=== PATIENT | female | born 1940 | race Caucasian/White ===

== ENCOUNTER 2018-07-04 18:54 | Emergency (ER) | payer MEDICARE, OTHER ==
[~2018-07-04] VITALS: Ht 167.6 cm; Wt 90.7 kg
[~2018-07-04 18:54] MED LIST: ALLO100 PO; CARV25 PO; CHOL10002 PO; CYAN1000 PO; ESTR2 PO; FISH1000 PO; HYDCHL25 PO; LISI20 PO; METF500 PO; NEPHROCAP PO; PARI1 PO; PRAV20 PO
[2018-07-04 19:32] LABS: BASOPHILS ABSOLUTE AUTO 0.02 K/mm3 (0.00-0.23); BASOPHILS PERCENT AUTO 1 % (0-2); EOSINOPHILS ABSOLUTE AUTO 0.12 K/mm3 (0.00-0.68); EOSINOPHILS PERCENT AUTO 3 % (0-6); Hematocrit 31.8 % (33.0-51.0); Hemoglobin 9.6 g/dL (11.5-16.0); IMMATURE GRAN ABSOLUTE AUTO 0.01 K/mm3 (0.00-0.10); IMMATURE GRAN PERCENT AUTO 0 % (0-1); LYMPHOCYTES ABSOLUTE AUTO 1.54 K/mm3 (0.84-5.20); LYMPHOCYTES PERCENT AUTO 35 % (21-46); MONOCYTES ABSOLUTE AUTO 0.35 K/mm3 (0.16-1.47); MONOCYTES PERCENT AUTO 8 % (4-13); Mean Corpuscular HGB 29.1 pg (26.0-34.0); Mean Corpuscular HGB Conc 30.2 g/dL (31.5-36.5); Mean Corpuscular Volume 96 fL (80-100); Mean Platelet Volume 9.8 fL (9.1-12.4); NEUTROPHILS ABSOLUTE AUTO 2.35 K/mm3 (1.96-9.15); NEUTROPHILS PERCENT AUTO 54 % (41-73); Platelet Count 104 K/mm3 (150-400); RDW Coefficient Variation 14.8 % (11.7-14.2); RDW Standard Deviation 52.2 fL (35.1-46.3); White Blood Cell Count 4.39 K/mm3 (4.00-11.30)
[2018-07-04] MEDS ORDERED: [UNRECOGNIZED DRUG - OTHER] PO (19:40)
[2018-07-04 20:00] LABS: Alanine Aminotransfer (ALT/SGP 38 U/L (12-78); Albumin, Blood 3.5 g/dL (3.4-5.0); Albumin/Globulin Ratio 0.8 (0.8-1.8); Alk Phos 109 U/L (50-136); Anion Gap 9 mmol/L (6-16); Aspartate Aminotrans (AST/SGOT 53 U/L (12-37); Bilirubin, Total 0.3 mg/dL (0.1-1.0); Blood Urea Nitrogen 21 mg/dL (8-24); Bun/Creatinine Ratio 14.4 (12.0-20.0); CO2, Blood 24 mmol/L (21-32); Calcium, Blood 10.1 mg/dL (8.5-10.1); Chloride, Blood 108 mmol/L (98-108); Creatinine, Blood 1.46 mg/dL (0.40-1.00); Globulin, Blood 4.4 g/dL (2.2-4.0); Glomerular Filtration Rate 37 (60-); Glucose, Blood 203 mg/dL (70-99); Potassium, Blood 3.9 mmol/L (3.5-5.5); Sodium, Blood 141 mmol/L (136-145); Total Protein, Blood 7.9 g/dL (6.4-8.2); Troponin I <0.015 ng/mL (0.000-0.040)
== END 2018-07-04 20:47 | disposition home or self-care (01) ==
LOC: ER 18:54
PROVIDERS: Emergency Medicine
DX: I48.91 Unspecified atrial fibrillation (principal); Z88.8 Allergy status to other drugs, medicaments and biological substances; Z79.899 Other long term (current) drug therapy; I10 Essential (primary) hypertension; E11.9 Type 2 diabetes mellitus without complications
CPT/HCPCS: 36415; 71046; 80053; 83735; 84484; 85025; 93005; 93010; 99285-25

== ENCOUNTER 2018-09-29 07:55 | Day surgery (SDC) | payer MEDICARE, OTHER ==
[~2018-09-29] VITALS: Ht 167.6 cm; Wt 92.9 kg
[~2018-09-29 07:55] MED LIST changes: +FENO54 PO; +Lopressor 25 mg25 MG PO; +Pravachol40 MG PO; +Zestril30 MG PO; +[UNRECOGNIZED DRUG - OTHER] PO
--- NOTE | 2018-09-29 08:41 | NUR ---
Ambulatory in Day SurgeryPatient states colon prep results clear. History, Chart, Medications and Allergies reviewed before start of procedure.Lungs clear T/O to Auscultation. Patient confirms NPO status and agrees with scheduled surgery. Pre-Op teaching done. Pt verbalizes understanding. WT ON ARRIVAL, WARM BLANKET, TO BP MEDS THIS AM
--- NOTE | 2018-09-29 09:17 | NUR ---
09/29/18 0917 Jaquan Garcia PATIENT DETERMINED TO BE ASA APPROPRIATE FOR PROPOFOL SEDATION PRIOR TO START OF PROCEDURE BY DR. Juan Wall Placed3-LEAD EKG REVIEWED WITH PHYSICIAN PRIOR TO START OF PROCEDURE.Patient to ENDO 1History, Chart, Medications and Allergies reviewed before start of procedure.MONITOR INTACT WITH CONTINUOUS PULSE OXIMETRY AND INTERMITTENT BP.O2 VIA N/C INTACT THROUGHOUT SEDATION/PROCEDURE.
--- NOTE | 2018-09-29 11:22 | NUR ---
PT MORE AWAKE, SITTING UP DRINKING PEPSI, RIDE WILL RETURN SHORTLY.
--- NOTE | 2018-09-29 11:32 | NUR ---
Discharge instructions reviewed with patient. Patient verbalizes understanding. Copy given to patient to take home. Discharged via wheelchair to private car for ride home.
== END 2018-09-29 23:16 | disposition home or self-care (01) ==
LOC: ORSCMMR 07:55 → ORD 09:00 → ORSCMMR 23:16
PROVIDERS: Internal Medicine Gastroenterology
PROC: 0DB98ZX Excision of Duodenum, Via Natural or Artificial Opening Endoscopic, Diagnostic (ICD-10-PCS; principal; 2018-09-29 09:00)
PROC: 0DBL8ZX Excision of Transverse Colon, Via Natural or Artificial Opening Endoscopic, Diagnostic (ICD-10-PCS; principal; 2018-09-29 09:00)
PROC: 0DB68ZX Excision of Stomach, Via Natural or Artificial Opening Endoscopic, Diagnostic (ICD-10-PCS; principal; 2018-09-29 09:00)
PROC: 0DBK8ZX Excision of Ascending Colon, Via Natural or Artificial Opening Endoscopic, Diagnostic (ICD-10-PCS; principal; 2018-09-29 09:00)
PROC: 3E0H8GC Introduction of Other Therapeutic Substance into Lower GI, Via Natural or Artificial Opening Endoscopic (ICD-10-PCS; principal; 2018-09-29 09:00)
DX: D50.0 Iron deficiency anemia secondary to blood loss (chronic) (principal); C18.4 Malignant neoplasm of transverse colon; D12.2 Benign neoplasm of ascending colon; D12.3 Benign neoplasm of transverse colon; K63.5 Polyp of colon; K29.70 Gastritis, unspecified, without bleeding; K57.30 Diverticulosis of large intestine without perforation or abscess without bleeding; K64.8 Other hemorrhoids; E11.9 Type 2 diabetes mellitus without complications; I10 Essential (primary) hypertension; I48.91 Unspecified atrial fibrillation; E78.00 Pure hypercholesterolemia, unspecified; Z79.899 Other long term (current) drug therapy; E66.01 Morbid (severe) obesity due to excess calories
CPT/HCPCS: 82947; 88305; 88342; J2704; J7120

== ENCOUNTER 2018-11-11 06:09 | Inpatient (IN) | payer MEDICARE, OTHER ==
[~2018-11-11] VITALS: Ht 167.6 cm; Wt 97.8 kg
[~2018-11-11 06:09] MED LIST changes: +CYAN500 SL; +FISH OIL PO; +NIAC500 PO; +OMEPRAZOLE20 MG PO; +TYLENOL ARTHRITIS PO
--- NOTE | 2018-11-11 07:20 | NUR ---
History, Chart, Medications and Allergies reviewed before start of procedure. Patient confirms NPO status and agrees with scheduled surgery. Lungs clear T/O to Auscultation. Patient reports completing Chlorhexadine shower X2 prior to admission to hospital. Pre-Op teaching done. Pt verbalizes understanding. TYPE AND SCREEN DISCUSSED WITH DR ANN, ORDER PLACED AND LAB SPECIMEN SENT.
--- NOTE | 2018-11-11 07:20 | NUR ---
MULTI SHARE PROGRAM COORDINATOR REPORT COMPLETED AT BEDSIDE WITH MICHELLE WALTON RN.
--- NOTE | 2018-11-11 07:22 | NUR ---
OR TRACKER EXPLAINED AND OPPORTUNITY FOR QUESTIONS PROVIDED.
--- NOTE | 2018-11-11 14:00 | NUR ---
PATIENT ARRIVED TO UNIT WITH BIPAP. REPORT RECEIVED FROM JAZLYN JAMES PACU. NO ACUTE ISSUES NOTED PATIENT RESPONDES TO VERBAL STIMULI BUT IS VERY SLEEPY. NO COMPLAINTS OF PAIN OR DISCOMFORT AT THIS TIME. WILL CONTINUE TO MONITOR FOR CHANGES.
--- NOTE | 2018-11-11 18:40 | NUR ---
NO ACUTE CHANGES NOTED. PATIENT IS WEANING OFF BIPAP, CURRENTLY ON 1 LITER 02 VIA NASAL CANULA AND SATING @ 100%. NO CURRENT COMPLAINTS OF PAIN OR DISCOMFORT NOTED. PATIENT STATES SHE IS CURRENTLY PAIN FREE AND DOES NOT WANT THE TELEVISION TUBE INSPECTOR AT THIS TIME. SURGICAL SITE IS CLEAN DRY AND INTACT WITH A PRAVENA VAC OVER IT. NO OTHER ISSUES NOTED. WILL CONTINUE TO MONITOR FOR CHANGES.
[2018-11-12 04:11] LABS: BASOPHILS ABSOLUTE AUTO 0.01 K/mm3 (0.00-0.23); BASOPHILS PERCENT AUTO 0 % (0-2); EOSINOPHILS PERCENT AUTO 0 % (0-6); Hematocrit 25.5 % (33.0-51.0); Hemoglobin 7.3 g/dL (11.5-16.0); IMMATURE GRAN ABSOLUTE AUTO 0.04 K/mm3 (0.00-0.10); IMMATURE GRAN PERCENT AUTO 1 % (0-1); LYMPHOCYTES ABSOLUTE AUTO 0.88 K/mm3 (0.84-5.20); LYMPHOCYTES PERCENT AUTO 14 % (21-46); MONOCYTES ABSOLUTE AUTO 0.48 K/mm3 (0.16-1.47); MONOCYTES PERCENT AUTO 8 % (4-13); Mean Corpuscular HGB 26.8 pg (26.0-34.0); Mean Corpuscular HGB Conc 28.6 g/dL (31.5-36.5); Mean Corpuscular Volume 94 fL (80-100); Mean Platelet Volume 9.3 fL (9.1-12.4); NEUTROPHILS ABSOLUTE AUTO 4.74 K/mm3 (1.96-9.15); NEUTROPHILS PERCENT AUTO 77 % (41-73); Platelet Count 82 K/mm3 (150-400); RDW Coefficient Variation 15.9 % (11.7-14.2); RDW Standard Deviation 54.4 fL (35.1-46.3); Red Blood Cell Count 2.72 M/mm3 (3.80-5.20); White Blood Cell Count 6.15 K/mm3 (4.00-11.30)
[2018-11-12 04:43] LABS: Bun/Creatinine Ratio 14.5 (12.0-20.0); Calcium, Blood 9.5 mg/dL (8.5-10.1); Creatinine, Blood 1.17 mg/dL (0.40-1.00); Potassium, Blood 4.1 mmol/L (3.5-5.5)
--- NOTE | 2018-11-12 05:01 | NUR ---
PCU NOC SHIFT SUMMARY PATIENT ALERT AND ORIENTED T/O SHIFT X4. PATIENT SLEPT WELL T/O SHIFT. PATIENT REPORTS MINIMAL TO NO PAIN. PATIENT STOOD WITH 2 ASSIST THIS THIS AND TOLERATED WELL. SUGRGICAL SITE AND WOUND VAC WNL WITH MINIMAL DRAINAGE INTO WOUND VAC CONTANER. PATIENT REMAINS ON ROOM AIR T/O SHIFT USING BIPAP PRN. 1+ EDEMA IN BLE NOTED. PATIENT DENIES ANY NEEDS AT THIS TIME. CALL LIGHT W/I REACH. WILL CONTINUE TO MONITOR AND GIVE REPORT TO DAYSHIFT RN.
--- NOTE | 2018-11-12 11:30 | NUR ---
PT LAYING IN BED EATING A CLEAR LIQUID DIET. A/OX3, PLEASANT AND COOPERATIVE WITH CARE, DENIES PAIN, LUNGS ARE CLEAR DIM IN BASES, RESP EVEN AND UNLABORED, NO COUGH NOTED, HRR, TELE IN PLACE RUNNING SR TO ST PER MONITOR, SEE STRIP, NO EDEMA NOTED, PPP+2, CAP REFILL <3SEC, VS STABLE, AFEBRILE, IV SITE IS CLEAR AND PATENT, BTX4, ABD FLAT SOFT NONTENER, VOIDS WITH OUT DIFF, SKIN HAS MID LINE ABD INCISION WITH A WOUND VAC IN PLACE, NO OUT SIDE DRAINAGE, OR S/S/ OF INFECTION, JANNETTE ARREAGA, CALL LIGHT IN REACH.
--- NOTE | 2018-11-12 16:43 | NUR ---
PT HAS BEEN TRANSFERED TO SURGICAL FLOOR, HER FAMILY IS WITH HER, AND TOOK HER BELONGINGS OVER WITH HER, REPORT GIVE TO ANA JAMES. PT TRANSFERED VIA WHEELCHAIR WITH TILE INSTALLER IN ATTENDENCE.
--- NOTE | 2018-11-12 17:07 | NUR ---
PT RECENTLY ARRIVED TO SURGICAL UNIT ROOM 228. REPORT GIVEN TO ANA Coates RN. FAMILY PRESENT. DENIES CP/SOB, DENIES PAIN. REPORTS TOLERATING CLEAR LIQUIDS. PT HAD LIQUID BM UPON ARRIVAL TO FLOOR. CLEANED UP WITH ASSIST BY FEMALE GLASS MELT OPERATOR'S. LUCERO IN PLACE, SECURED, OFF FLOOR. CALL LIGHT IN REACH. PT ASSISTED WITH ADL'S. DENIES FURTHER NEEDS AT THIS TIME. PRAVENA TO ABDOMEN APPEARS WNL. PAS IN PLACE.
--- NOTE | 2018-11-13 07:53 | NUR ---
SUMMARY PT SLEPT OFF AND ON TONIGHT APPEARING COMFORTABLE WITH SLEEP.ON ASSESS NOTED PT WITH EDEMA ALL EXT. ALSO WITH CRACKLES BILAT BASES.ONLY SMALL AMNTS DARKER URINE IN LUCERO NOTED. P T USUALLY TAKES LISINOPRIL AND IT WAS ORDERED, BUT NOT TO START TIL NEXT AM. I CALLED DR TO ADVISE OF ABOVE IN ADDITION TO NOTING ONGOING HTN. HE ORDERED TO GIVE DOSE OF LISINOPRIL TONIGHT IN ADDITION TO NEXT DOSE IN AM. NIC DCD THIS AM.PER ORDERS AFTER NOTING IMPROVED OUTPUT.
--- NOTE | 2018-11-13 10:38 | NUR ---
PT VOIDED THIS AM AFTER LUCERO REMOVAL. PT ALSO HAVING LIQUID STOOL, AMBULATED IN HALLWAY W/ ASSIST. PT DROWSY W/ SLIGHT CONFUSION. PT DAUGHTER CALLED UPDATED ON CONDITION. RECHECKED BP MILD IMPROVEMENT. DAUGHTER ALSO BY TO SEE PT.
--- NOTE | 2018-11-13 15:27 | NUR ---
ASSUMED CARE OF PT FROM ERIKA PATRICIO.
--- NOTE | 2018-11-13 17:33 | NUR ---
PT BP WAS ELEVATED THIS AM, HYDRALAZINE ORDERED AND GIVEN PER EMAR. BP DECREASED SLIGHTLY. PT AMBULATED IN BLACKMON EARLIER BUT HAS BEEN SLEEPING ON AND OFF THROUGHOUT THE DAY. DAUGHTER STATES SLIGHT CONFUSION IS HER BASELINE. ATTEMPTS TO GET OOB INDEPENDENTLY TO BATHROOM, BED ALARM ON AT THIS TIME. FAMILY AT BEDSIDE, PT PLEASANT AND COOPERATIVE.
[2018-11-14 04:35] LABS: Bun/Creatinine Ratio 15.1 (12.0-20.0); Calcium, Blood 9.9 mg/dL (8.5-10.1); Creatinine, Blood 1.06 mg/dL (0.40-1.00); Potassium, Blood 3.5 mmol/L (3.5-5.5)
--- NOTE | 2018-11-14 06:01 | NUR ---
POD 2 S/P LAVH. PT VSS T/O NIGHT. DRESSINGS CDI. SCANT VAGINAL BLEEDING. PAIN MGD W/1 OXYCODONE+IBUPROFEN W/REP RELIEF. PT AIME REG PO, DENIED N/V. PT IS VOIDING URINE W/O DIFFICULTY, REP +FLATUS, NO BM YET, BOWEL CARE GIVEN PER ORDERS. PT INDEP IN ROOM, IS USING CALL LIGHT FOR ASSISTANCE, WILL CONT TO MONITOR UNTIL REP GIVEN TO ONCOMING RN.
--- NOTE | 2018-11-14 07:02 | NUR ---
SUMMARY PT WITH NO C/O TONIGHT. OCC FORGETFUL DURING NIGHT HOURS. TOLERATES OOB WITH FWW WITH SBA.NO C/O NAUSEA.
--- NOTE | 2018-11-14 11:43 | NUR ---
DR ANN IN TO SEE PT
--- NOTE | 2018-11-14 17:00 | NUR ---
SUMMARY NO ACUTE CHANGES T/O SHIFT. PT SAT UP IN CHAIR FOR SEVERAL HOURS DURING SHIFT. HAD LARGE INCONTINENT BM. SHOWERED. HAS DENIED PAIN. TOLERATING PO INTAKE. FORGETFUL AT TIMES. UTILIZING TAB AND BED ALARMS FOR SAFETY.
--- NOTE | 2018-11-14 17:30 | NUR ---
turned over care to ERIKA Linton
--- NOTE | 2018-11-15 06:39 | NUR ---
SUMMARY PT INTERMITTENTLY CONFUSED TONIGHT. DESIRES TO GO HOME TODAY. ASSIST FOR OOB FOR BRP WITH WALKER AND ASSIST.TRANSFERRED TO RM 231 RM 228 WAS NEEDED FOR NEW PT.
--- NOTE | 2018-11-15 14:13 | NUR ---
DISCHARGE SUMMARY PT DISCHARGED HOME AT 1400 WITH DAUGHTERS. DISCHARGE TEACHING GIVEN AND PATIENT/DAUGHTERS DENIED ANY CONCERNS OR QUESTIONS. PROVENA DRESSING C/D/I. PATIENT DENIES SOB OR PAIN. AMBULATES WITH FWW AND ONE ASSIST. IS EATING, DRINKING, AND VOIDING.
== END 2018-11-15 14:04 | disposition home or self-care (01) | DRG 331 ==
LOC: SURS 06:09 → PRE IP 07:30 → PCU 11:59 → SURS 11-12 16:39
PROVIDERS: ADMIT Surgery
PROC: 0DTF0ZZ Resection of Right Large Intestine, Open Approach (ICD-10-PCS; principal; 2018-11-12)
DX: C18.4 Malignant neoplasm of transverse colon (principal); E78.5 Hyperlipidemia, unspecified; E11.9 Type 2 diabetes mellitus without complications; I48.0 Paroxysmal atrial fibrillation; I35.0 Nonrheumatic aortic (valve) stenosis; L71.9 Rosacea, unspecified; D50.0 Iron deficiency anemia secondary to blood loss (chronic); D69.6 Thrombocytopenia, unspecified; D12.6 Benign neoplasm of colon, unspecified
CPT/HCPCS: 36415; 80048; 82947; 85025; 86850; 86900; 86901; 94660; 94762; J0295; J0360; J1650; J1885; J2250; J2370; J2405; J2704; J2710; J3010; J7120

== ENCOUNTER 2019-01-31 10:34 | Emergency (ER) | payer MEDICARE, OTHER ==
[~2019-01-31] VITALS: Ht 167.6 cm; Wt 90.7 kg
[2019-01-31] MEDS ORDERED: IRON150C PO (13:14)
[2019-01-31 13:20] LABS: Percent Saturation 5.7 % (15.0-50.0)
== END 2019-01-31 13:23 | disposition home or self-care (01) ==
LOC: ER 10:34
PROVIDERS: Internal Medicine
DX: D50.9 Iron deficiency anemia, unspecified (principal); I10 Essential (primary) hypertension; E11.9 Type 2 diabetes mellitus without complications; E78.5 Hyperlipidemia, unspecified; M10.9 Gout, unspecified; I48.0 Paroxysmal atrial fibrillation; Z85.51 Personal history of malignant neoplasm of bladder; Z88.8 Allergy status to other drugs, medicaments and biological substances; Z79.84 Long term (current) use of oral hypoglycemic drugs; Z79.899 Other long term (current) drug therapy
CPT/HCPCS: 82272; 82607; 82728; 82746; 83540; 83550; 99283

== ENCOUNTER 2019-03-19 13:50 | Inpatient (IN) | payer MEDICARE, OTHER ==
[~2019-03-19] VITALS: Ht 167.6 cm; Wt 93.7 kg
[~2019-03-19 13:50] MED LIST changes: +IRON150C PO
[2019-03-19 15:22] LABS: Source, Urine Clean Catch
[2019-03-19 15:37] LABS: Bilirubin, Urine Neg (Neg); Blood, Urine 2+ (Neg); Glucose Qualitative, Urine Neg (Neg); Ketones, Urine Neg (Neg); Leukocyte Esterase, Urine 2+ (Neg); Nitrite, Urine Pos (Neg); Protein, Urine 3+ (Neg); Urobilinogen, Urine NORM (Normal)
[2019-03-19] MEDS ORDERED: Ferrex 150 Plu1 EACH PO (15:50)
[2019-03-19] MEDS ORDERED: Zestril40 MG PO (15:50)
[2019-03-19 15:51] LABS: Appearance, Urine Hazy (Clear); Color, Urine Yellow (P-Yellow)
[2019-03-19] MEDS ORDERED: METO50ER PO (15:51)
[2019-03-19 15:53] LABS: Bacteria Many /hpf; Squamous Epithelial Cells Mod /hpf (Few); White Blood Cells, Urine 25-50 /hpf (0-5)
[2019-03-19 15:58] LABS: BASOPHILS ABSOLUTE AUTO 0.01 K/mm3 (0.00-0.23); BASOPHILS PERCENT AUTO 0 % (0-2); EOSINOPHILS ABSOLUTE AUTO 0.02 K/mm3 (0.00-0.68); EOSINOPHILS PERCENT AUTO 0 % (0-6); Hematocrit 29.8 % (33.0-51.0); Hemoglobin 8.7 g/dL (11.5-16.0); IMMATURE GRAN ABSOLUTE AUTO 0.02 K/mm3 (0.00-0.10); IMMATURE GRAN PERCENT AUTO 0 % (0-1); LYMPHOCYTES ABSOLUTE AUTO 0.41 K/mm3 (0.84-5.20); LYMPHOCYTES PERCENT AUTO 6 % (21-46); MONOCYTES ABSOLUTE AUTO 0.46 K/mm3 (0.16-1.47); MONOCYTES PERCENT AUTO 7 % (4-13); Mean Corpuscular HGB 28.8 pg (26.0-34.0); Mean Corpuscular HGB Conc 29.2 g/dL (31.5-36.5); Mean Corpuscular Volume 99 fL (80-100); Mean Platelet Volume 10.2 fL (9.1-12.4); NEUTROPHILS ABSOLUTE AUTO 5.66 K/mm3 (1.96-9.15); NEUTROPHILS PERCENT AUTO 86 % (41-73); Platelet Count 69 K/mm3 (150-400); RDW Coefficient Variation 16.2 % (11.7-14.2); RDW Standard Deviation 58.9 fL (35.1-46.3); Red Blood Cell Count 3.02 M/mm3 (3.80-5.20); White Blood Cell Count 6.58 K/mm3 (4.00-11.30)
[2019-03-19 16:12] LABS: Albumin/Globulin Ratio 0.8 (0.8-1.8); Bilirubin, Total 0.5 mg/dL (0.1-1.0); Bun/Creatinine Ratio 14.7 (12.0-20.0); Calcium, Blood 9.9 mg/dL (8.5-10.1); Creatinine, Blood 1.09 mg/dL (0.40-1.00); Globulin, Blood 3.9 g/dL (2.2-4.0); Potassium, Blood 3.7 mmol/L (3.5-5.5); Total Protein, Blood 6.9 g/dL (6.4-8.2)
[2019-03-19 18:12] LABS: International Normalized Ratio 1.03; Prothrombin Time Results 10.9 Sec (9.7-11.5)
[2019-03-20 04:06] LABS: BASOPHILS ABSOLUTE AUTO 0.01 K/mm3 (0.00-0.23); BASOPHILS PERCENT AUTO 0 % (0-2); Hematocrit 27.7 % (33.0-51.0); Hemoglobin 8.2 g/dL (11.5-16.0); LYMPHOCYTES ABSOLUTE AUTO 0.62 K/mm3 (0.84-5.20); LYMPHOCYTES PERCENT AUTO 6 % (21-46); MONOCYTES ABSOLUTE AUTO 0.58 K/mm3 (0.16-1.47); MONOCYTES PERCENT AUTO 6 % (4-13); Mean Corpuscular HGB 29.2 pg (26.0-34.0); Mean Corpuscular HGB Conc 29.6 g/dL (31.5-36.5); Mean Corpuscular Volume 99 fL (80-100); Mean Platelet Volume 9.6 fL (9.1-12.4); Platelet Count 69 K/mm3 (150-400); RDW Coefficient Variation 16.4 % (11.7-14.2); RDW Standard Deviation 59.4 fL (35.1-46.3); Red Blood Cell Count 2.81 M/mm3 (3.80-5.20); White Blood Cell Count 9.89 K/mm3 (4.00-11.30)
[2019-03-20 04:10] LABS: EOSINOPHILS PERCENT AUTO 0 % (0-6); IMMATURE GRAN PERCENT AUTO 1 % (0-1); NEUTROPHILS ABSOLUTE AUTO 8.58 K/mm3 (1.96-9.15); NEUTROPHILS PERCENT AUTO 87 % (41-73)
[2019-03-20 04:22] LABS: Albumin, Blood 2.7 g/dL (3.4-5.0); Albumin/Globulin Ratio 0.7 (0.8-1.8); Bilirubin, Total 0.7 mg/dL (0.1-1.0); Bun/Creatinine Ratio 14.2 (12.0-20.0); Calcium, Blood 9.3 mg/dL (8.5-10.1); Creatinine, Blood 1.34 mg/dL (0.40-1.00); Globulin, Blood 3.7 g/dL (2.2-4.0); Potassium, Blood 4.3 mmol/L (3.5-5.5); Total Protein, Blood 6.4 g/dL (6.4-8.2)
--- NOTE | 2019-03-20 05:38 | NUR ---
SHIFT SUMMARY PT SLEEPING IN ROOM COMFORTABLY AT THIS TIME. NO ACUTE CHANGES IN STATUS SINCE PT ARRIVAL. PT SLEPT VERY WELL T/O NIGHT. PT REPORTS FEELING BETTER AND WANTS TO GO HOME TODAY. PT EDUCATED THAT ABX WILL LIKELY BE GIVEN TODAY AND THAT PROVIDERS WILL NEED TO MONITOR EFFECT. PT REPORTS UNDERSTANDING THAT SHE MAY STAY ONE MORE MIDNIGHT. RESP EVEN UNLABORED ON RA W/ SATS >92%. DENIES ANY PAIN OR SOB. PT ABLE TO STAND W/ SBA TO BSC TO URINATE. PT HAS 2 PIV THAT ARE SALINE LOCKED AT THIS TIME. DENIES OTHER NEEDS. CALL LIGHT IN REACH. BED ALARM ON FOR SAFETY, D/T CONFUSION.
--- NOTE | 2019-03-20 14:34 | NUR ---
PT UP WITH PHYSICAL THERAPY AND MORE REDNESS/EDEMA NOTED TO L ANKLE THAN SEEN THIS MORNING. ANKLE IS WARM TO THE TOUCH, WITH +1 EDEMA. PULSE STRONG, PT DENIES PAIN AND IS ABLE TO WIGGLE TOES. DR. JAMES MADE AWARE OF THIS FINDING AT 1420. NO NEW ORDERS AT THIS TIME. PT CURRENTLY TAKING ANTIBIOTICS. WILL CTM
--- NOTE | 2019-03-20 18:31 | NUR ---
ATTEMPTED TO CALL DR. JAMES CONCERNING POSTIVE BLOOD CULTURE RESULTS, ERIKA SAYS THAT HE IS UNABLE TO TALK AND WILL CALL BACK
--- NOTE | 2019-03-20 18:45 | NUR ---
DR. JAMES NOTIFIED OF GRAM POSITIVE BACILLI GROWTH IN BLOOD CULTURE AT 1840, NO NEW ORDERS AT THIS TIME
--- NOTE | 2019-03-20 18:46 | NUR ---
SUMMARY: NO ACUTE CHANGE TODAY. VSS, PT ALERT, SOMETIMES FORGETFUL, EASILY RE ORIENTED, BED ALARM ON. PT RECIEVED ANTIBIOTICS TODAY. UP WITH SBA TO COMMODE. TELE STABLE, PT IS NOW MED-TELE STATUS. NO ACUTE SAFETY CONCERNS AT THIS TIME.
--- NOTE | 2019-03-21 06:29 | NUR ---
SHIFT SUMMARY PT HAS REMAINED ALERT AND ORIENTED TO SELF/ DATE/ TIME/ EVENT, BUT IS VERY FORGETFUL OF SURROUNDINGS AND CURRENT ILLNESS. Pt RE-ORIENTS WELL AND REQUIRES FREQUENT REMINDERS TO CALL FOR ASSISTANCE WITH AMBULATION AND CARE. PT HAS REMAINED STANDBY ASSIST THROUGHOUT THE NIGHT AND IS MOSTLY STEADY ON HER FEET. CONTINUES TO HAVE FREQUENT URINATION AND SEVERAL ATTEMPTS AT SELF-AMBULATION THROUGHOUT THE NIGHT. VSS. VERY PLEASANT AND MOSTLY COOPERATIVE WITH CARE. NO OTHER CHANGES NOTED FROM INITIAL ASSESSMENT. WILL CONTINUE TO MONITOR AND REPORT TO ONCOMING SHIFT RN. BED IN LOW POSITION, CALL LIGHT IN REACH. BED ALARM SET FOR SAFETY.
[2019-03-21 10:41] LABS: Hematocrit 29.1 % (33.0-51.0); Hemoglobin 8.6 g/dL (11.5-16.0); Mean Corpuscular HGB 28.8 pg (26.0-34.0); Mean Corpuscular HGB Conc 29.6 g/dL (31.5-36.5); Mean Corpuscular Volume 97 fL (80-100); Mean Platelet Volume 10.2 fL (9.1-12.4); Platelet Count 98 K/mm3 (150-400); RDW Coefficient Variation 16.7 % (11.7-14.2); RDW Standard Deviation 58.8 fL (35.1-46.3); Red Blood Cell Count 2.99 M/mm3 (3.80-5.20); White Blood Cell Count 15.21 K/mm3 (4.00-11.30)
[2019-03-21 10:58] LABS: Albumin, Blood 2.8 g/dL (3.4-5.0); Albumin/Globulin Ratio 0.6 (0.8-1.8); Bilirubin, Total 0.5 mg/dL (0.1-1.0); Calcium, Blood 10.4 mg/dL (8.5-10.1); Creatinine, Blood 1.21 mg/dL (0.40-1.00); Globulin, Blood 4.4 g/dL (2.2-4.0); Total Protein, Blood 7.2 g/dL (6.4-8.2)
[2019-03-21 11:08] LABS: BAND PERCENT MAN 16 % (0-8); BASOPHILS PERCENT MAN 0 % (0-2); EOSINOPHILS PERCENT MAN 0 % (0-6); LYMPHOCYTES ABSOLUTE MAN 0.45 K/mm3 (0.84-5.20); LYMPHOCYTES PERCENT MAN 3 % (21-46); MONOCYTES PERCENT MAN 2 % (4-13); NEUTROPHILS ABSOLUTE MAN 14.44 K/mm3 (1.96-9.15); SEG NEUTROPHILS PERCENT MAN 79 % (41-73); TOTAL CELLS COUNTED 100
--- NOTE | 2019-03-21 13:06 | NUR ---
Upon receiving a spiritual care referral, I visit patient. Patient is sitting on a chair and alert. Patient openly tells me about her who has dementia, her son that had surgery on his leg today and about her compelling urge to go home. Patient tells me her life story beginning when she was very young up into the present. Patient shares her spiriutal journey that is woven through many adventures in life. Patient is grateful for the life she has had. I listen empathically, provide grief support, encourage self-care and provide pastoral psychosocial rehabilitation counselor and prayer. Patient responds well and voices appreciation for the visit.
--- NOTE | 2019-03-21 15:25 | NUR ---
PATIENT TRANSFERRED FROM PCU 15 TO ROOM 332, REPORT RECEIVED FROM ERIKA CARRION. VSS, ON RA. TRANSFERRED FROM W/C TO CHAIR WITH SBA. PATIENT DENIES ANY PAIN OR NEEDS AT THIS TIME. ORIENTED TO ROOM AND USE OF CALL LIGHT.
--- NOTE | 2019-03-21 15:25 | NUR ---
PT TRANSFERED PT TRANSFERED AT 1520 IN STABLE CONDITION. PT WHEELED UP TO NEW ROOM, 332 BY THIS RN. REPORT CALLED TO ERIKA TOUSSAINT. NO FURTHER QUESTIONS REQUIRED AT THIS TIME. PT TO CALL ABOUT NEW ROOM.
[2019-03-21] MEDS ORDERED: VITAMIN B-12500 MCG SL (16:13)
[2019-03-21] MEDS ORDERED: ASPI325EC PO (16:13)
[2019-03-22 05:02] LABS: BASOPHILS ABSOLUTE AUTO 0.01 K/mm3 (0.00-0.23); BASOPHILS PERCENT AUTO 0 % (0-2); EOSINOPHILS PERCENT AUTO 0 % (0-6); Hematocrit 26.2 % (33.0-51.0); Hemoglobin 7.7 g/dL (11.5-16.0); IMMATURE GRAN ABSOLUTE AUTO 0.17 K/mm3 (0.00-0.10); IMMATURE GRAN PERCENT AUTO 2 % (0-1); LYMPHOCYTES ABSOLUTE AUTO 0.88 K/mm3 (0.84-5.20); LYMPHOCYTES PERCENT AUTO 10 % (21-46); MONOCYTES ABSOLUTE AUTO 0.32 K/mm3 (0.16-1.47); MONOCYTES PERCENT AUTO 4 % (4-13); Mean Corpuscular HGB 28.8 pg (26.0-34.0); Mean Corpuscular HGB Conc 29.4 g/dL (31.5-36.5); Mean Corpuscular Volume 98 fL (80-100); Mean Platelet Volume 10.6 fL (9.1-12.4); NEUTROPHILS ABSOLUTE AUTO 7.25 K/mm3 (1.96-9.15); NEUTROPHILS PERCENT AUTO 84 % (41-73); Platelet Count 86 K/mm3 (150-400); RDW Coefficient Variation 16.3 % (11.7-14.2); Red Blood Cell Count 2.67 M/mm3 (3.80-5.20); White Blood Cell Count 8.63 K/mm3 (4.00-11.30)
[2019-03-22 05:36] LABS: Bun/Creatinine Ratio 26.6 (12.0-20.0); Calcium, Blood 10.1 mg/dL (8.5-10.1); Creatinine, Blood 1.24 mg/dL (0.40-1.00)
[2019-03-22] MEDS ORDERED: LEVOFLOXACIN750 MG PO (11:48)
--- NOTE | 2019-03-22 12:45 | NUR ---
PATIENT D/C'D TO HOME WITH SPOUSE. RX MEDICATIONS FAXED TO [facility]. D/C INSTRUCTIONS AND EDUCATION DISCUSSED WITH PATIENT AND COPY PROVIDED. PATIENT DENIES ANY FURTHER QUESTIONS OR CONCERNS.
== END 2019-03-22 12:45 | disposition home or self-care (01) | DRG 871 ==
LOC: ER 13:50 → PCU 16:23 → ER 18:35 → PCU 18:40 → MEDS 03-21 15:18 → ENPENDDIS 03-22 11:16 → MEDS 03-22 12:45
PROVIDERS: Family Medicine; Internal Medicine; ADMIT Internal Medicine
DX: A41.51 Sepsis due to Escherichia coli [E. coli] (principal); G93.41 Metabolic encephalopathy; N39.0 Urinary tract infection, site not specified; M10.9 Gout, unspecified; E78.5 Hyperlipidemia, unspecified; I48.0 Paroxysmal atrial fibrillation; N18.3 Chronic kidney disease, stage 3 (moderate); D50.9 Iron deficiency anemia, unspecified; K44.9 Diaphragmatic hernia without obstruction or gangrene; I12.9 Hypertensive chronic kidney disease with stage 1 through stage 4 chronic kidney disease, or unspecified chronic kidney disease; D69.6 Thrombocytopenia, unspecified; E11.22 Type 2 diabetes mellitus with diabetic chronic kidney disease; G47.33 Obstructive sleep apnea (adult) (pediatric); E86.0 Dehydration; Z79.84 Long term (current) use of oral hypoglycemic drugs
CPT/HCPCS: 36415; 71045; 80048; 80053; 81001; 82947; 83605; 83880; 84443; 85025; 85610; 87040; 87077; 87086; 87186; 93005; 93010; 96361; 96365; 97110; 97116; 97161; 99285-25; A9270; J0696; J1650; J7050; J7120

== ENCOUNTER 2019-04-19 23:47 | Inpatient (IN) | payer MEDICARE, OTHER ==
[~2019-04-19] VITALS: Ht 170.2 cm; Wt 77.1 kg
[~2019-04-19 23:47] MED LIST changes: +ASPI325EC PO; +Ferrex 150 Plu1 EACH PO; +LEVOFLOXACIN750 MG PO; +METO50ER PO; +VITAMIN B-12500 MCG SL; +Zestril40 MG PO
[2019-04-20 00:14] LABS: Source, Urine Catheter
[2019-04-20 00:21] LABS: BASOPHILS ABSOLUTE AUTO 0.02 K/mm3 (0.00-0.23); BASOPHILS PERCENT AUTO 0 % (0-2); EOSINOPHILS ABSOLUTE AUTO 0.05 K/mm3 (0.00-0.68); EOSINOPHILS PERCENT AUTO 1 % (0-6); Hematocrit 31.4 % (33.0-51.0); Hemoglobin 9.5 g/dL (11.5-16.0); IMMATURE GRAN ABSOLUTE AUTO 0.03 K/mm3 (0.00-0.10); IMMATURE GRAN PERCENT AUTO 0 % (0-1); LYMPHOCYTES ABSOLUTE AUTO 0.61 K/mm3 (0.84-5.20); LYMPHOCYTES PERCENT AUTO 7 % (21-46); MONOCYTES PERCENT AUTO 7 % (4-13); Mean Corpuscular HGB 29.5 pg (26.0-34.0); Mean Corpuscular HGB Conc 30.3 g/dL (31.5-36.5); Mean Corpuscular Volume 98 fL (80-100); Mean Platelet Volume 9.9 fL (9.1-12.4); NEUTROPHILS PERCENT AUTO 85 % (41-73); Platelet Count 77 K/mm3 (150-400); RDW Coefficient Variation 14.6 % (11.7-14.2); RDW Standard Deviation 52.6 fL (35.1-46.3); Red Blood Cell Count 3.22 M/mm3 (3.80-5.20); White Blood Cell Count 8.71 K/mm3 (4.00-11.30)
[2019-04-20 00:21] LABS: Appearance, Urine Clear (Clear); Bilirubin, Urine Neg (Neg); Blood, Urine 4+ (Neg); Color, Urine Yellow (P-Yellow); Glucose Qualitative, Urine 1+ (Neg); Ketones, Urine Neg (Neg); Leukocyte Esterase, Urine Neg (Neg); Nitrite, Urine Neg (Neg); Protein, Urine 3+ (Neg); Urobilinogen, Urine NORM (Normal)
[2019-04-20 00:29] LABS: Bacteria Few /hpf; Squamous Epithelial Cells Rare /hpf (Few); White Blood Cells, Urine 0-2 /hpf (0-5)
[2019-04-20 00:37] LABS: Alanine Aminotransfer (ALT/SGP 33 U/L (12-78); Albumin, Blood 3.1 g/dL (3.4-5.0); Albumin/Globulin Ratio 0.7 (0.8-1.8); Alk Phos 118 U/L (50-136); Anion Gap 8 mmol/L (6-16); Aspartate Aminotrans (AST/SGOT 43 U/L (12-37); Bilirubin, Total 0.6 mg/dL (0.1-1.0); Blood Urea Nitrogen 18 mg/dL (8-24); Bun/Creatinine Ratio 15.3 (12.0-20.0); CO2, Blood 24 mmol/L (21-32); Calcium, Blood 9.7 mg/dL (8.5-10.1); Chloride, Blood 108 mmol/L (98-108); Creatinine, Blood 1.18 mg/dL (0.40-1.00); Globulin, Blood 4.3 g/dL (2.2-4.0); Glomerular Filtration Rate 47 (60-); Glucose, Blood 186 mg/dL (70-99); Sodium, Blood 140 mmol/L (136-145); Total Protein, Blood 7.4 g/dL (6.4-8.2); Troponin I <0.015 ng/mL (0.000-0.040)
[2019-04-20 00:37] LABS: Influenza A Negative (NEGATIVE); Influenza B Negative (NEGATIVE)
--- NOTE | 2019-04-20 04:06 | NUR ---
0320 PT ADMITTED TO ROOM PCU-9 PER CART FROM ER, ALERT AND ORIENTED X 4, FOLLOWING ALL SIMPLE VERBAL COMMANDS.
--- NOTE | 2019-04-20 05:43 | NUR ---
SHIFT SUMMARY: 79 Y/O FEMALE RESTED COMFORTABLY THIS SHIFT, TELEMETRY REFLECTS NSR PER MARÍA SAUER, DENIES PAIN OR NAUSEA, BED ALARM APPLIED, BED LOW POSITION WITH CALL LIGHT AT SIDE.
--- NOTE | 2019-04-20 07:48 | NUR ---
Awake, alert, and oriented to person, place, date, ongoing events, and following directions. Denies having had any recent weight loss. States that she lost about 20 pounds when she had her cancer in the . Afebrile, denies any cough, runny nose or sore throat. Lung sounds are clear. States that she had a UTI recently. Red, hot, swollen are demarkated on the left lower leg. Tiny scratches and scabs noted on her feet and toes; she states that her little dog likes to chew on her feet for fun. Denies any pain in her legs or any where else. STates that the swelling and redness of the left leg have been there for about 2 weeks.
[2019-04-20 09:10] LABS: Adenovirus Not Detected (NOT DETECT); Bordetella pertussis Not Detected (NOT DETECT); Chlamydophila pneumoniae Not Detected (NOT DETECT); Coronavirus 229E Not Detected (NOT DETECT); Coronavirus HKU1 Not Detected (NOT DETECT); Coronavirus NL63 Not Detected (NOT DETECT); Coronavirus OC43 Not Detected (NOT DETECT); Human Metapneumovirus Not Detected (NOT DETECT); Human Rhinovirus/Enterovirus Not Detected (NOT DETECT); Influenza A Not Detected (NOT DETECT); Influenza A/2009-H1 Not Detected (NOT DETECT); Influenza A/H1 Not Detected (NOT DETECT); Influenza A/H3 Not Detected (NOT DETECT); Influenza B Not Detected (NOT DETECT); Mycoplasma pneumoniae Not Detected (NOT DETECT); Parainfluenza Virus 1 Not Detected (NOT DETECT); Parainfluenza Virus 2 Not Detected (NOT DETECT); Parainfluenza Virus 3 Not Detected (NOT DETECT); Parainfluenza Virus 4 Not Detected (NOT DETECT); Respiratory Syncytial Virus Not Detected (NOT DETECT)
--- NOTE | 2019-04-20 10:58 | NUR ---
Telephone report given to Rosalia. plan is to transfer pt to [facility] shortly.
[2019-04-20 13:33] LABS: Hemoglobin 8.9 g/dL (11.5-16.0); Mean Corpuscular HGB 28.8 pg (26.0-34.0); Mean Corpuscular HGB Conc 29.7 g/dL (31.5-36.5); Mean Corpuscular Volume 97 fL (80-100); Mean Platelet Volume 9.8 fL (9.1-12.4); RDW Standard Deviation 53.5 fL (35.1-46.3); Red Blood Cell Count 3.09 M/mm3 (3.80-5.20); White Blood Cell Count 11.77 K/mm3 (4.00-11.30)
[2019-04-20 13:35] LABS: Platelet Count 81 K/mm3 (150-400)
[2019-04-20 14:16] LABS: Albumin, Blood 2.9 g/dL (3.4-5.0); Albumin/Globulin Ratio 0.8 (0.8-1.8); Bilirubin, Total 0.7 mg/dL (0.1-1.0); Calcium, Blood 9.3 mg/dL (8.5-10.1); Creatinine, Blood 1.25 mg/dL (0.40-1.00); Globulin, Blood 3.8 g/dL (2.2-4.0); Potassium, Blood 4.1 mmol/L (3.5-5.5); Total Protein, Blood 6.7 g/dL (6.4-8.2)
--- NOTE | 2019-04-20 15:22 | NUR ---
POSITIVE BLOOD CULTURE CALL TO DR. HUFFMAN TO INFORM OF GRAM POSITIVE COCCI.
--- NOTE | 2019-04-20 16:02 | NUR ---
SHIFT SUMMARY PCU TRANSFER THIS AFTERNOON. PATIENT DENIES PAIN, NAUSEA, AND SHORTNESS OF BREATH. PATIENT UP SBA IN ROOM. UP IN CHAIR FOR MEALS. FAMILY VISITED THIS AFTERNOON. POSITIVE BLOOD CULTURES CALLED TO DR. HUFFMAN. BRENDAN NAPPING MOST OF SHIFT. CALL LIGHT IN REACH.
[2019-04-21 05:02] LABS: BASOPHILS ABSOLUTE AUTO 0.01 K/mm3 (0.00-0.23); BASOPHILS PERCENT AUTO 0 % (0-2); EOSINOPHILS ABSOLUTE AUTO 0.03 K/mm3 (0.00-0.68); EOSINOPHILS PERCENT AUTO 0 % (0-6); Hematocrit 27.6 % (33.0-51.0); Hemoglobin 8.1 g/dL (11.5-16.0); IMMATURE GRAN ABSOLUTE AUTO 0.03 K/mm3 (0.00-0.10); IMMATURE GRAN PERCENT AUTO 0 % (0-1); LYMPHOCYTES ABSOLUTE AUTO 0.85 K/mm3 (0.84-5.20); LYMPHOCYTES PERCENT AUTO 12 % (21-46); MONOCYTES ABSOLUTE AUTO 0.47 K/mm3 (0.16-1.47); MONOCYTES PERCENT AUTO 6 % (4-13); Mean Corpuscular HGB Conc 29.3 g/dL (31.5-36.5); Mean Corpuscular Volume 99 fL (80-100); Mean Platelet Volume 10.8 fL (9.1-12.4); NEUTROPHILS ABSOLUTE AUTO 6.02 K/mm3 (1.96-9.15); NEUTROPHILS PERCENT AUTO 81 % (41-73); Platelet Count 61 K/mm3 (150-400); RDW Coefficient Variation 14.9 % (11.7-14.2); RDW Standard Deviation 54.7 fL (35.1-46.3); Red Blood Cell Count 2.79 M/mm3 (3.80-5.20); White Blood Cell Count 7.41 K/mm3 (4.00-11.30)
[2019-04-21 05:32] LABS: Albumin, Blood 2.4 g/dL (3.4-5.0); Albumin/Globulin Ratio 0.6 (0.8-1.8); Bilirubin, Total 0.6 mg/dL (0.1-1.0); Bun/Creatinine Ratio 15.6 (12.0-20.0); Calcium, Blood 9.4 mg/dL (8.5-10.1); Creatinine, Blood 1.35 mg/dL (0.40-1.00); Globulin, Blood 3.8 g/dL (2.2-4.0); Potassium, Blood 4.3 mmol/L (3.5-5.5); Total Protein, Blood 6.2 g/dL (6.4-8.2)
--- NOTE | 2019-04-21 05:43 | NUR ---
Shift Summary Patient slept well overnight. Confusion seems to be waxing and waning. Redness to LLE is faded. Noted hgb of 8.1 on AM labs -- will communicate to oncoming shift.
--- NOTE | 2019-04-21 15:01 | NUR ---
Patient is sitting on a chair and alert. Patient shares about her personal emotional struggles, about her medical history and about her family unit complications. Patient tells me about the struggle it is to be away from her while she is in the hospital. He doesn't drive much and they miss each other. They have been for 57 years. I listen empathically, conduct a life review, explore evangelical beliefs and provide pastoral staff counselor and prayer. Patient responds well and shows signs of catharsis and increased peace. I will continue to remain available to patient and family.
--- NOTE | 2019-04-21 17:19 | NUR ---
SHIFT SUMMARY NO ACUTE CHANGES. PATIENT DENIES PAIN, NAUSEA, AND SHORTNESS OF BREATH. PATIENT UP SBA IN ROOM. PATIENT UP IN RECLINER MOST OF SHIFT. FAMILY VISITED TODAY. PATIENT REPORTS SHE IS FEELING BETTER. CALL LIGHT IN REACH.
[2019-04-22 05:20] LABS: BASOPHILS ABSOLUTE AUTO 0.02 K/mm3 (0.00-0.23); BASOPHILS PERCENT AUTO 0 % (0-2); EOSINOPHILS ABSOLUTE AUTO 0.08 K/mm3 (0.00-0.68); EOSINOPHILS PERCENT AUTO 1 % (0-6); Hematocrit 28.6 % (33.0-51.0); Hemoglobin 8.7 g/dL (11.5-16.0); IMMATURE GRAN ABSOLUTE AUTO 0.05 K/mm3 (0.00-0.10); IMMATURE GRAN PERCENT AUTO 1 % (0-1); LYMPHOCYTES ABSOLUTE AUTO 0.76 K/mm3 (0.84-5.20); LYMPHOCYTES PERCENT AUTO 10 % (21-46); MONOCYTES ABSOLUTE AUTO 0.42 K/mm3 (0.16-1.47); MONOCYTES PERCENT AUTO 5 % (4-13); Mean Corpuscular HGB 29.6 pg (26.0-34.0); Mean Corpuscular HGB Conc 30.4 g/dL (31.5-36.5); Mean Corpuscular Volume 97 fL (80-100); NEUTROPHILS ABSOLUTE AUTO 6.64 K/mm3 (1.96-9.15); NEUTROPHILS PERCENT AUTO 83 % (41-73); Platelet Count 74 K/mm3 (150-400); RDW Coefficient Variation 14.9 % (11.7-14.2); RDW Standard Deviation 53.5 fL (35.1-46.3); Red Blood Cell Count 2.94 M/mm3 (3.80-5.20); White Blood Cell Count 7.97 K/mm3 (4.00-11.30)
[2019-04-22 05:45] LABS: Albumin, Blood 2.7 g/dL (3.4-5.0); Albumin/Globulin Ratio 0.7 (0.8-1.8); Bilirubin, Total 0.5 mg/dL (0.1-1.0); Bun/Creatinine Ratio 16.2 (12.0-20.0); Calcium, Blood 9.6 mg/dL (8.5-10.1); Creatinine, Blood 1.17 mg/dL (0.40-1.00); Globulin, Blood 3.7 g/dL (2.2-4.0); Potassium, Blood 4.1 mmol/L (3.5-5.5); Total Protein, Blood 6.4 g/dL (6.4-8.2)
--- NOTE | 2019-04-22 06:38 | NUR ---
IRRIGATING PUMP OPERATOR SUMMARY PT A/O, HOWEVER SOMETIMES SLOW TO ANSWER QUESTIONS AND HAVE TO THINK HARD ABOUT IT. PT WAS COOPERATIVE AND PLEASANT. SLEPT WELL THROUGHOUT THE NIGHT. GOT UP MULTIPLE TIMES TO USE THE BATHROOM WITH STANDBY ASSIST. DENIES PAIN AND SOB. NO ACUTE CHANGES.
--- NOTE | 2019-04-22 17:53 | NUR ---
PT AOX3 AND COOPERATIVE OF CARE PT ONE PERSON ASSIST TO RESTROOM AND CALLS APPRORIATELY. PT HAS GOTTEN UP FOR MEALS AND DENIES ANY PAIN. CELLULITIS CONTINUES IN L LEG ULTRA SOUND WAS NEG TODAY. REDNESS HAS NOT WORSENED. NO DISTRESS NOTED WILL CONTINUE TO MONITOR.
--- NOTE | 2019-04-23 05:40 | NUR ---
SHIFT SUMMARY PT PLEASANT AND COOPERATIVE. INTERMITTENTLY MILDLY CONFUSED. PT HAD UNEVENTFUL NIGHT. LLE SLIGHTLY SWOLLEN. NO REDNESS NOTED. NO PAIN REPORTED. PT AMBULATED WELL TO THE RESTROOM WITH SBA. AFEBRILE. HYPERTENSIVE. APRESOLINE GIVEN THIS AM. OTHERWISE VITAL SIGNS STABLE. NO ACUTE CHANGES. WILL CONTINUE TO MONITOR.
[2019-04-23] MEDS ORDERED: CEFD300 PO (11:33)
[2019-04-23] MEDS ORDERED: ACET325 PO (11:33)
[2019-04-23] MEDS ORDERED: Hydrochloroth12.5 MG PO (11:34)
--- NOTE | 2019-04-23 12:27 | NUR ---
PT DISCHARGED HOME, LEFT UNIT AT 12:20 VIA WHEELCHAIR. IV REMOVED, REVIEWED DISCHARGE INFORMATION. NO QUESTIONS AT THIS TIME
== END 2019-04-23 12:15 | disposition home or self-care (01) | DRG 871 ==
LOC: ER 23:47 → PCU 04-20 03:07 → MEDS 04-20 11:12 → ENPENDDIS 04-23 10:54 → MEDS 04-23 12:15
PROVIDERS: Emergency Medicine; Internal Medicine Endocrinology, Diabetes & Metabolism; ADMIT Internal Medicine
DX: A40.0 Sepsis due to streptococcus, group A (principal); G92 Toxic encephalopathy; L03.116 Cellulitis of left lower limb; J98.11 Atelectasis; Z79.84 Long term (current) use of oral hypoglycemic drugs; Z79.82 Long term (current) use of aspirin; Z85.038 Personal history of other malignant neoplasm of large intestine; E78.5 Hyperlipidemia, unspecified; M10.9 Gout, unspecified; N18.3 Chronic kidney disease, stage 3 (moderate); E11.22 Type 2 diabetes mellitus with diabetic chronic kidney disease; R15.9 Full incontinence of feces; I70.90 Unspecified atherosclerosis; I35.0 Nonrheumatic aortic (valve) stenosis; I12.9 Hypertensive chronic kidney disease with stage 1 through stage 4 chronic kidney disease, or unspecified chronic kidney disease
CPT/HCPCS: 0099U; 36415; 70450; 71046; 80053; 81001; 82947; 83605; 84145; 84484; 85025; 85027; 87040; 87147; 87804; 93005; 93010; 93306; 93971; 96361; 96365; 96375; 99285; J0360; J0690; J0692; J1650; J1885; J2405; J7030

== ENCOUNTER 2019-10-12 15:43 | Emergency (ER) | payer MEDICARE, OTHER ==
[~2019-10-12] VITALS: Ht 170.2 cm; Wt 82.5 kg
[~2019-10-12 15:43] MED LIST changes: +ACET325 PO; +CEFD300 PO; +Hydrochloroth12.5 MG PO
[2019-10-12 16:18] LABS: BASOPHILS ABSOLUTE AUTO 0.03 K/mm3 (0.00-0.23); BASOPHILS PERCENT AUTO 1 % (0-2); EOSINOPHILS ABSOLUTE AUTO 0.22 K/mm3 (0.00-0.68); EOSINOPHILS PERCENT AUTO 5 % (0-6); Hematocrit 32.5 % (33.0-51.0); Hemoglobin 10.4 g/dL (11.5-16.0); IMMATURE GRAN ABSOLUTE AUTO 0.01 K/mm3 (0.00-0.10); IMMATURE GRAN PERCENT AUTO 0 % (0-1); LYMPHOCYTES ABSOLUTE AUTO 1.32 K/mm3 (0.84-5.20); LYMPHOCYTES PERCENT AUTO 29 % (21-46); MONOCYTES PERCENT AUTO 7 % (4-13); Mean Corpuscular HGB 30.7 pg (26.0-34.0); Mean Corpuscular Volume 96 fL (80-100); Mean Platelet Volume 11.4 fL (9.1-12.4); NEUTROPHILS ABSOLUTE AUTO 2.75 K/mm3 (1.96-9.15); NEUTROPHILS PERCENT AUTO 59 % (41-73); Platelet Count 66 K/mm3 (150-400); RDW Coefficient Variation 14.1 % (11.7-14.2); RDW Standard Deviation 50.1 fL (35.1-46.3); Red Blood Cell Count 3.39 M/mm3 (3.80-5.20); White Blood Cell Count 4.63 K/mm3 (4.00-11.30)
[2019-10-12 16:22] LABS: Source, Urine Clean Catch
[2019-10-12 16:27] LABS: Bilirubin, Urine Neg (Neg); Blood, Urine 3+ (Neg); Glucose Qualitative, Urine 4+ (Neg); Ketones, Urine Neg (Neg); Leukocyte Esterase, Urine 2+ (Neg); Nitrite, Urine Neg (Neg); Protein, Urine 3+ (Neg); Urobilinogen, Urine NORM (Normal)
[2019-10-12 16:28] LABS: Appearance, Urine Hazy (Clear); Color, Urine Yellow (P-Yellow)
[2019-10-12 16:34] LABS: Bacteria Mod /hpf; Mucus Light (0-Heavy); Squamous Epithelial Cells Mod /hpf (Few)
[2019-10-12 16:37] LABS: U Amphetamine Screen Not Detected; U Barbituate Screen Not Detected; U Benzodiazapine Screen Not Detected; U Buprenorphine Screen Not Detected; U Cannabinoids Screen Not Detected; U Cocaine Screen Not Detected; U Methadone Screen Not Detected; U Methamphetamine Screen Not Detected; U Opiates Screen Not Detected; U Oxycodone Screen Not Detected; U Phencyclidine Screen Not Detected; U Propoxyphene Screen Not Detected
[2019-10-12 16:47] LABS: Albumin, Blood 2.9 g/dL (3.4-5.0); Albumin/Globulin Ratio 0.7 (0.8-1.8); Bilirubin, Total 0.8 mg/dL (0.1-1.0); Bun/Creatinine Ratio 10.4 (12.0-20.0); Calcium, Blood 9.6 mg/dL (8.5-10.1); Creatinine, Blood 0.96 mg/dL (0.40-1.00); Globulin, Blood 4.3 g/dL (2.2-4.0); Potassium, Blood 4.1 mmol/L (3.5-5.5); Total Protein, Blood 7.2 g/dL (6.4-8.2)
[2019-10-12] MEDS ORDERED: KEFLEX500 MG PO (17:01)
== END 2019-10-12 17:51 | disposition home or self-care (01) ==
LOC: ER 15:43
PROVIDERS: Emergency Medicine
DX: N39.0 Urinary tract infection, site not specified (principal); E11.65 Type 2 diabetes mellitus with hyperglycemia; I10 Essential (primary) hypertension; Z88.1 Allergy status to other antibiotic agents; Z88.8 Allergy status to other drugs, medicaments and biological substances; Z79.899 Other long term (current) drug therapy; Z79.84 Long term (current) use of oral hypoglycemic drugs; Z79.82 Long term (current) use of aspirin
CPT/HCPCS: 70450; 80053; 81001; 85025; 87086; 93005; 93010; 96365; 99285-25; J0696

== ENCOUNTER 2019-12-13 17:23 | Inpatient (IN) | payer MEDICARE, OTHER ==
[~2019-12-13] VITALS: Ht 172.7 cm; Wt 81.7 kg
[~2019-12-13 17:23] MED LIST changes: -FENO54 PO; +KEFLEX500 MG PO; -METO50ER PO; -Pravachol40 MG PO; -Zestril40 MG PO
[2019-12-13 18:45] LABS: Source, Urine Clean Catch
[2019-12-13 18:48] LABS: BASOPHILS ABSOLUTE AUTO 0.02 K/mm3 (0.00-0.23); BASOPHILS PERCENT AUTO 0 % (0-2); EOSINOPHILS ABSOLUTE AUTO 0.15 K/mm3 (0.00-0.68); EOSINOPHILS PERCENT AUTO 3 % (0-6); Hematocrit 34.6 % (33.0-51.0); Hemoglobin 10.8 g/dL (11.5-16.0); IMMATURE GRAN ABSOLUTE AUTO 0.03 K/mm3 (0.00-0.10); IMMATURE GRAN PERCENT AUTO 1 % (0-1); LYMPHOCYTES ABSOLUTE AUTO 1.47 K/mm3 (0.84-5.20); LYMPHOCYTES PERCENT AUTO 32 % (21-46); MONOCYTES ABSOLUTE AUTO 0.33 K/mm3 (0.16-1.47); MONOCYTES PERCENT AUTO 7 % (4-13); Mean Corpuscular HGB 29.8 pg (26.0-34.0); Mean Corpuscular HGB Conc 31.2 g/dL (31.5-36.5); Mean Corpuscular Volume 96 fL (80-100); Mean Platelet Volume 10.9 fL (9.1-12.4); NEUTROPHILS ABSOLUTE AUTO 2.65 K/mm3 (1.96-9.15); NEUTROPHILS PERCENT AUTO 57 % (41-73); Platelet Count 78 K/mm3 (150-400); RDW Coefficient Variation 13.9 % (11.7-14.2); RDW Standard Deviation 48.7 fL (35.1-46.3); Red Blood Cell Count 3.62 M/mm3 (3.80-5.20); White Blood Cell Count 4.65 K/mm3 (4.00-11.30)
[2019-12-13 18:54] LABS: Appearance, Urine Hazy (Clear); Color, Urine Yellow (P-Yellow); Leukocyte Esterase, Urine 1+ (Neg); Nitrite, Urine Pos (Neg); Protein, Urine 2+ (Neg); Specific Gravity, Urine 1.015 (1.003-1.022)
[2019-12-13 18:55] LABS: Bilirubin, Urine Neg (Neg); Blood, Urine 2+ (Neg); Glucose Qualitative, Urine 4+ (Neg); Ketones, Urine Neg (Neg); Urobilinogen, Urine NORM (Normal)
[2019-12-13 19:01] LABS: Bacteria Many /hpf; Squamous Epithelial Cells Few /hpf (Few); White Blood Cells, Urine 50-100 /hpf (0-5)
[2019-12-13 19:04] LABS: U Amphetamine Screen Not Detected; U Barbituate Screen Not Detected; U Benzodiazapine Screen Not Detected; U Buprenorphine Screen Not Detected; U Cannabinoids Screen Not Detected; U Cocaine Screen Not Detected; U Methadone Screen Not Detected; U Methamphetamine Screen Not Detected; U Opiates Screen Not Detected; U Oxycodone Screen Not Detected; U Phencyclidine Screen Not Detected; U Propoxyphene Screen Not Detected
[2019-12-13 19:04] LABS: Ethanol (Alcohol), Blood, Med <3 mg/dL; Free Thyroxine 1.13 ng/dL (0.70-1.60); Magnesium, Blood 1.9 mg/dL (1.6-2.4)
[2019-12-13 19:16] LABS: Alanine Aminotransfer (ALT/SGP 31 U/L (12-78); Albumin/Globulin Ratio 0.7 (0.8-1.8); Alk Phos 139 U/L (50-136); Anion Gap 7 mmol/L (6-16); Aspartate Aminotrans (AST/SGOT 54 U/L (12-37); Bilirubin, Total 0.5 mg/dL (0.1-1.0); Blood Urea Nitrogen 14 mg/dL (8-24); Bun/Creatinine Ratio 13.9 (12.0-20.0); CO2, Blood 24 mmol/L (21-32); Calcium, Blood 10.1 mg/dL (8.5-10.1); Chloride, Blood 104 mmol/L (98-108); Creatinine, Blood 1.01 mg/dL (0.40-1.00); Globulin, Blood 4.5 g/dL (2.2-4.0); Glomerular Filtration Rate 56 (60-); Glucose, Blood 429 mg/dL (70-99); Potassium, Blood 4.1 mmol/L (3.5-5.5); Sodium, Blood 135 mmol/L (136-145); Thyroid Stimulating Hormone 0.649 uIU/mL (0.360-4.800); Total Protein, Blood 7.5 g/dL (6.4-8.2)
--- NOTE | 2019-12-13 23:02 | NUR ---
REPORT RECEIVED FROM YULISA JAMES FROM ER. PATIENT ENROUTE TO ROOM 347
[2019-12-14] MEDS ORDERED: ACET325 PO (01:20)
[2019-12-14] MEDS ORDERED: OMEPRAZOLE20 MG PO (01:21)
[2019-12-14] MEDS ORDERED: ASPIR 8181 M1 PO (01:23)
[2019-12-14] MEDS ORDERED: Vitamin B-121000 MCG PO (01:23)
[2019-12-14 04:51] LABS: BASOPHILS ABSOLUTE AUTO 0.03 K/mm3 (0.00-0.23); BASOPHILS PERCENT AUTO 1 % (0-2); EOSINOPHILS ABSOLUTE AUTO 0.18 K/mm3 (0.00-0.68); EOSINOPHILS PERCENT AUTO 3 % (0-6); Hematocrit 33.5 % (33.0-51.0); Hemoglobin 10.5 g/dL (11.5-16.0); IMMATURE GRAN ABSOLUTE AUTO 0.01 K/mm3 (0.00-0.10); IMMATURE GRAN PERCENT AUTO 0 % (0-1); LYMPHOCYTES ABSOLUTE AUTO 1.66 K/mm3 (0.84-5.20); LYMPHOCYTES PERCENT AUTO 29 % (21-46); MONOCYTES ABSOLUTE AUTO 0.37 K/mm3 (0.16-1.47); MONOCYTES PERCENT AUTO 7 % (4-13); Mean Corpuscular HGB 29.7 pg (26.0-34.0); Mean Corpuscular HGB Conc 31.3 g/dL (31.5-36.5); Mean Corpuscular Volume 95 fL (80-100); Mean Platelet Volume 10.2 fL (9.1-12.4); NEUTROPHILS ABSOLUTE AUTO 3.39 K/mm3 (1.96-9.15); NEUTROPHILS PERCENT AUTO 60 % (41-73); Platelet Count 82 K/mm3 (150-400); RDW Coefficient Variation 13.9 % (11.7-14.2); RDW Standard Deviation 48.1 fL (35.1-46.3); Red Blood Cell Count 3.53 M/mm3 (3.80-5.20); White Blood Cell Count 5.64 K/mm3 (4.00-11.30)
[2019-12-14 05:10] LABS: Alanine Aminotransfer (ALT/SGP 29 U/L (12-78); Albumin, Blood 2.8 g/dL (3.4-5.0); Albumin/Globulin Ratio 0.7 (0.8-1.8); Alk Phos 109 U/L (50-136); Anion Gap 6 mmol/L (6-16); Aspartate Aminotrans (AST/SGOT 42 U/L (12-37); Bilirubin, Total 0.7 mg/dL (0.1-1.0); Blood Urea Nitrogen 11 mg/dL (8-24); CO2, Blood 26 mmol/L (21-32); Calcium, Blood 9.4 mg/dL (8.5-10.1); Chloride, Blood 106 mmol/L (98-108); Creatinine, Blood 0.92 mg/dL (0.40-1.00); Globulin, Blood 4.1 g/dL (2.2-4.0); Glomerular Filtration Rate >60 (60-); Glucose, Blood 194 mg/dL (70-99); Magnesium, Blood 1.7 mg/dL (1.6-2.4); Potassium, Blood 3.3 mmol/L (3.5-5.5); Sodium, Blood 138 mmol/L (136-145); Total Protein, Blood 6.9 g/dL (6.4-8.2)
--- NOTE | 2019-12-14 07:02 | NUR ---
PATIENT PLEASANTLY CONFUSED AND VERY TANGENTIAL IN HER CONVERSATIONS. SHE REQUIRES LOTS OF REDIRECTION, ESPECIALLY OOB FOR SAFETY. SKIN INTACT, OOB WITH STRONG ONE ASSIST TO BEDSIDE COMMODE. VERY IMPULSIVE GETTING OOB. AP REGULAR, GENERALIZED NON PITTING EDEMA. PT STATES BASELINE. VOIDING FREQUENT SMALL VOIDS OF CLOUDY, ODOROUS VICTORINO URINE. UNSURE OF WHY SHE IS IN THE HOSPITA.
--- NOTE | 2019-12-14 12:07 | NUR ---
Patient immediately tells me stories about her family and her adventures. Carolyn was in the [employer] and met her of 60 years in the [employer]. He stayed in for 22 years then ran a [employer] shop. She tells stories about the many places they lived the, great people she has met and the deep things that matter most to her. Patient gets confused every once in awhile and also says words that don't fit in the context of the topic but she is pleasant. I listen empathically, normalize patient's experience and provide companionship and a calming presence. Patient responds well and shows signs of an elevated mood. I will continue to remain available to patient and family.
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
--- NOTE | 2019-12-14 23:00 | NUR ---
PT HAS BEEN SCREAMING OUT AND CALLING OUT. PT DOES NOT LIKE HAVE RESTRAINTS. PT STILL TRYING TO PULL AT IV. ZYPREXA IM GIVEN. NOT ABLE TO RE-ASSESS BP AFTER GIVEN HYDRALAZINE PT STILL SCREAMING AND KICKING.
--- NOTE | 2019-12-15 05:05 | NUR ---
EXPENSE CLERK SUMMARY PT A/O X1 TO SELF. PT HAS BEEN SLEEPING SINCE IV ATIVAN WAS GIVEN. 4 POINT SOFT RESTRAINT AND LANDY IN PLACE. HYDRALAZINE GIVEN FOR HYPERTENSION. WILL CONTINUE TO MONITOR.
[2019-12-15 05:10] LABS: BASOPHILS ABSOLUTE AUTO 0.03 K/mm3 (0.00-0.23); BASOPHILS PERCENT AUTO 1 % (0-2); EOSINOPHILS ABSOLUTE AUTO 0.11 K/mm3 (0.00-0.68); EOSINOPHILS PERCENT AUTO 2 % (0-6); Hematocrit 36.5 % (33.0-51.0); Hemoglobin 11.5 g/dL (11.5-16.0); IMMATURE GRAN ABSOLUTE AUTO 0.02 K/mm3 (0.00-0.10); IMMATURE GRAN PERCENT AUTO 0 % (0-1); LYMPHOCYTES ABSOLUTE AUTO 1.24 K/mm3 (0.84-5.20); LYMPHOCYTES PERCENT AUTO 20 % (21-46); MONOCYTES ABSOLUTE AUTO 0.52 K/mm3 (0.16-1.47); MONOCYTES PERCENT AUTO 8 % (4-13); Mean Corpuscular HGB 29.6 pg (26.0-34.0); Mean Corpuscular HGB Conc 31.5 g/dL (31.5-36.5); Mean Corpuscular Volume 94 fL (80-100); NEUTROPHILS ABSOLUTE AUTO 4.25 K/mm3 (1.96-9.15); NEUTROPHILS PERCENT AUTO 69 % (41-73); Platelet Count 69 K/mm3 (150-400); RDW Coefficient Variation 13.7 % (11.7-14.2); Red Blood Cell Count 3.89 M/mm3 (3.80-5.20); White Blood Cell Count 6.17 K/mm3 (4.00-11.30)
[2019-12-15 05:30] LABS: Anion Gap 4 mmol/L (6-16); Blood Urea Nitrogen 12 mg/dL (8-24); Bun/Creatinine Ratio 14.5 (12.0-20.0); CO2, Blood 27 mmol/L (21-32); Calcium, Blood 9.7 mg/dL (8.5-10.1); Chloride, Blood 107 mmol/L (98-108); Creatinine, Blood 0.83 mg/dL (0.40-1.00); Glomerular Filtration Rate >60 (60-); Glucose, Blood 245 mg/dL (70-99); Potassium, Blood 3.5 mmol/L (3.5-5.5); Sodium, Blood 138 mmol/L (136-145)
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
--- NOTE | 2019-12-16 04:25 | NUR ---
launch steward summary pt a/o x1 to self. slept well up to around 0200. pt increasingly increasing agitated and screaming out occasionally. pt recieved ativan and zyprexa which has not calmed pt down. hospitalist trudi notified. haldol Q6 prn 3 mg iv ordered. order to also dc ativan.
[2019-12-16 05:15] LABS: BASOPHILS ABSOLUTE AUTO 0.02 K/mm3 (0.00-0.23); BASOPHILS PERCENT AUTO 0 % (0-2); EOSINOPHILS ABSOLUTE AUTO 0.15 K/mm3 (0.00-0.68); EOSINOPHILS PERCENT AUTO 3 % (0-6); Hematocrit 35.9 % (33.0-51.0); Hemoglobin 11.5 g/dL (11.5-16.0); IMMATURE GRAN ABSOLUTE AUTO 0.01 K/mm3 (0.00-0.10); IMMATURE GRAN PERCENT AUTO 0 % (0-1); LYMPHOCYTES ABSOLUTE AUTO 0.93 K/mm3 (0.84-5.20); LYMPHOCYTES PERCENT AUTO 20 % (21-46); MONOCYTES ABSOLUTE AUTO 0.37 K/mm3 (0.16-1.47); MONOCYTES PERCENT AUTO 8 % (4-13); Mean Corpuscular Volume 94 fL (80-100); Mean Platelet Volume 10.3 fL (9.1-12.4); NEUTROPHILS ABSOLUTE AUTO 3.24 K/mm3 (1.96-9.15); NEUTROPHILS PERCENT AUTO 69 % (41-73); Platelet Count 63 K/mm3 (150-400); RDW Standard Deviation 48.1 fL (35.1-46.3); Red Blood Cell Count 3.83 M/mm3 (3.80-5.20); White Blood Cell Count 4.72 K/mm3 (4.00-11.30)
[2019-12-16 05:30] LABS: Alanine Aminotransfer (ALT/SGP 28 U/L (12-78); Albumin, Blood 2.8 g/dL (3.4-5.0); Albumin/Globulin Ratio 0.6 (0.8-1.8); Alk Phos 102 U/L (50-136); Anion Gap 5 mmol/L (6-16); Aspartate Aminotrans (AST/SGOT 55 U/L (12-37); Bilirubin, Total 0.9 mg/dL (0.1-1.0); Blood Urea Nitrogen 12 mg/dL (8-24); Bun/Creatinine Ratio 13.3 (12.0-20.0); CO2, Blood 27 mmol/L (21-32); Calcium, Blood 9.7 mg/dL (8.5-10.1); Chloride, Blood 108 mmol/L (98-108); Globulin, Blood 4.4 g/dL (2.2-4.0); Glomerular Filtration Rate >60 (60-); Glucose, Blood 179 mg/dL (70-99); Potassium, Blood 3.4 mmol/L (3.5-5.5); Sodium, Blood 140 mmol/L (136-145); Total Protein, Blood 7.2 g/dL (6.4-8.2)
--- NOTE | 2019-12-16 18:11 | NUR ---
SHIFT SUMMARY: PATIENT SLEPT ALL DAY, HAD NO MEALS. SPOKE TO DAUGHTER HAYLIE THIS EVENING; SHE STATED THAT SLEEPING ALL DAY IS NOT UNUSUAL FOR HER MOM. RESISTS ORAL CARE. RESTRAINTS REMOVED AND DC'D AT 1205. GAVE TELEPHONE UPDATE TO DAUGHTER [employer] IN [place] AND PT'S AUNT [place] VISITED BRIEFLY. INCONTINENT OF B&B, ATTENDS IN PLACE. UNSAFE TO GIVE PO MEDS D/T SOMNOLENCE. DR. PEARL ASSESSED PT, CHANGED SOME MEDICATIONS.
--- NOTE | 2019-12-16 20:44 | NUR ---
PT RESTING COMFORTABLY IN BED; PT TOOK ALL HS MEDS IN APPLESAUCE; PT VERY SLEEPY.
--- NOTE | 2019-12-17 03:45 | NUR ---
SHIFT SUMMARY: 79 Y/O FEMALE RESTED COMFORTABLY ALL SHIFT; PT VERY DROWSY AT TIMES AND REQUIRED STAFF TO AROUSE AT TIMES; DENIES PAIN OR NAUSEA; BED ALARM APPLIED, BED LOW POSITION WITH CALL LIGHT AT SIDE.
[2019-12-17 05:53] LABS: BASOPHILS ABSOLUTE AUTO 0.02 K/mm3 (0.00-0.23); BASOPHILS PERCENT AUTO 1 % (0-2); EOSINOPHILS ABSOLUTE AUTO 0.15 K/mm3 (0.00-0.68); EOSINOPHILS PERCENT AUTO 4 % (0-6); Hematocrit 33.1 % (33.0-51.0); Hemoglobin 10.3 g/dL (11.5-16.0); IMMATURE GRAN ABSOLUTE AUTO 0.02 K/mm3 (0.00-0.10); IMMATURE GRAN PERCENT AUTO 1 % (0-1); LYMPHOCYTES ABSOLUTE AUTO 1.13 K/mm3 (0.84-5.20); LYMPHOCYTES PERCENT AUTO 28 % (21-46); MONOCYTES ABSOLUTE AUTO 0.38 K/mm3 (0.16-1.47); MONOCYTES PERCENT AUTO 9 % (4-13); Mean Corpuscular HGB 29.4 pg (26.0-34.0); Mean Corpuscular HGB Conc 31.1 g/dL (31.5-36.5); Mean Corpuscular Volume 95 fL (80-100); Mean Platelet Volume 10.4 fL (9.1-12.4); NEUTROPHILS ABSOLUTE AUTO 2.38 K/mm3 (1.96-9.15); NEUTROPHILS PERCENT AUTO 58 % (41-73); Platelet Count 56 K/mm3 (150-400); RDW Standard Deviation 48.5 fL (35.1-46.3); White Blood Cell Count 4.08 K/mm3 (4.00-11.30)
[2019-12-17 06:18] LABS: Magnesium, Blood 1.7 mg/dL (1.6-2.4)
[2019-12-17 06:21] LABS: Albumin, Blood 2.5 g/dL (3.4-5.0); Albumin/Globulin Ratio 0.7 (0.8-1.8); Bilirubin, Total 0.7 mg/dL (0.1-1.0); Bun/Creatinine Ratio 15.7 (12.0-20.0); Calcium, Blood 9.5 mg/dL (8.5-10.1); Creatinine, Blood 1.02 mg/dL (0.40-1.00); Globulin, Blood 3.8 g/dL (2.2-4.0); Potassium, Blood 3.5 mmol/L (3.5-5.5); Total Protein, Blood 6.3 g/dL (6.4-8.2)
--- NOTE | 2019-12-17 18:07 | NUR ---
PT ALERT TO SELF THIS AM. PT MORE ALERT THIS AFTERNOON, AX2. PT COOPERATIVE WITH CARE THIS SHIFT. PT'S IN THE ROOM TO VISIT THIS AM. PT STATED HEADACHE THIS AM, MEDICATED WITH TYLENOL, HEADACHE RESOLVED. PT STATED ITCHYNESS EARLY THIS AFTERNOON AND TOOK A NAP JUST AFTER. UPON AWAKENING PT STATED CONTINUED ITCHYNESS. DR VELIZ BENADRYL WAS ORDERED AND ADMINISTERED WITH IMPROVEMENT TO ITCHYNESS. PT CURRENTLY SITTING UP EATING DINNER, MORE ALERT THAN THROUGHOUT THE REST OF THE SHIFT.
--- NOTE | 2019-12-18 04:20 | NUR ---
SHIFT SUMMARY ASSUMED CARE OF PT AT 1900. PT IS A/OX1, CANT ANSWER QUESTIONS APPROPIATELY AND SAYS NONSENSICAL SENTENCES. PT ATTEMTPES TO GET OUT OF BED MULTIPLE TIMES. HEART SOUNDS REGULAR, LUNG SOUNDS DIMINISHED, SATURATIONS ABOVE 95%. PT HAS REDNESS IN HER MARK ANTHONY AREA, NYASTATIN ORDERED FROM NIGHT DOCTOR. PT HAS BEEN INCONTINENT T/O THE NIGHT. ATTEMPTED TO GET PT ON BSC DUE TO PT REQUEST BUT PT WOULD NOT TOLERATE WT ON FEET. NO ACUTE EVENTS DURING THE NIGHT. PT SLEPT MOST OF THE NIGHT. CALL LIGHT IN REACH, BED IN LOWEST POSITION, WILL CONTINUE TO MONITOR UNTIL DAYSHIFT NURSE ARRIVES.
[2019-12-18 05:49] LABS: BASOPHILS ABSOLUTE AUTO 0.02 K/mm3 (0.00-0.23); BASOPHILS PERCENT AUTO 1 % (0-2); EOSINOPHILS ABSOLUTE AUTO 0.12 K/mm3 (0.00-0.68); EOSINOPHILS PERCENT AUTO 3 % (0-6); Hematocrit 32.2 % (33.0-51.0); Hemoglobin 10.1 g/dL (11.5-16.0); IMMATURE GRAN ABSOLUTE AUTO 0.02 K/mm3 (0.00-0.10); IMMATURE GRAN PERCENT AUTO 1 % (0-1); LYMPHOCYTES ABSOLUTE AUTO 1.06 K/mm3 (0.84-5.20); LYMPHOCYTES PERCENT AUTO 26 % (21-46); MONOCYTES ABSOLUTE AUTO 0.38 K/mm3 (0.16-1.47); MONOCYTES PERCENT AUTO 9 % (4-13); Mean Corpuscular HGB 29.7 pg (26.0-34.0); Mean Corpuscular HGB Conc 31.4 g/dL (31.5-36.5); Mean Corpuscular Volume 95 fL (80-100); Mean Platelet Volume 10.1 fL (9.1-12.4); NEUTROPHILS ABSOLUTE AUTO 2.46 K/mm3 (1.96-9.15); NEUTROPHILS PERCENT AUTO 61 % (41-73); Platelet Count 55 K/mm3 (150-400); RDW Coefficient Variation 13.9 % (11.7-14.2); RDW Standard Deviation 47.8 fL (35.1-46.3); White Blood Cell Count 4.06 K/mm3 (4.00-11.30)
[2019-12-18 06:07] LABS: Albumin, Blood 2.4 g/dL (3.4-5.0); Albumin/Globulin Ratio 0.6 (0.8-1.8); Bilirubin, Total 0.9 mg/dL (0.1-1.0); Bun/Creatinine Ratio 15.3 (12.0-20.0); Calcium, Blood 9.5 mg/dL (8.5-10.1); Creatinine, Blood 0.98 mg/dL (0.40-1.00); Potassium, Blood 3.4 mmol/L (3.5-5.5); Total Protein, Blood 6.4 g/dL (6.4-8.2)
--- NOTE | 2019-12-18 17:03 | NUR ---
SHIFT SUMMARY PT ALERT TO SELF AND FAMILY THIS SHIFT. PT HAS MORE STRENGTH TO TURN IN BED FOR CHANGING THIS SHIFT. PT'S IN THE ROOM TO VISIT AROUND NOON. PT HAS SLEPT THROUGH MUCH OF THIS SHIFT. PT MORE ALERT THIS AFTERNOON, YET STILL HAS PERIODS OF INCOMPREHENSIBLE SPEECH. BP SYSTOLIC BP 167 THIS AM, APRESALINE ADMINISTERED PRN, RECHECKED AT 135. THIS AFTERNOON SYSTOLIC BP 188, APRESALINE ADMINISTERED PRN, AWAITING RECHECK. PT CURRENTLY LAYING IN BED WAITING FOR DINNER.
--- NOTE | 2019-12-19 04:22 | NUR ---
SHIFT SUMMARY ASSUMED CARE OF PT AT 1900. PT IS A/OX1, DENIES N/T AT THIS TIME. HEART SOUNDS REGULAR, LUNG SOUNDS DIMINISHED, DENIES SOB/CP AT THIS TIME. PT ASKING ABOUT AND STATES SHE WANTS TO GET UP TO GO TO SCHOOL. PT HAS BEEN RESTLESS ALL NIGHT AND THROWING LEGS OVER THE SIDE OF THE BED. PT HAS BEEN INCONTINENT T/O THE NIGHT. NO ACUTE EVENTS DURING THE NIGHT. PT SLEPT MOST OF THE NIGHT. CALL LIGHT IN REACH, BED IN LOWEST POSITON, WILL CONTINUE TO MONITOR UNTIL DAYSHIFT NURSE ARRIVES.
[2019-12-19 05:07] LABS: BASOPHILS ABSOLUTE AUTO 0.02 K/mm3 (0.00-0.23); BASOPHILS PERCENT AUTO 0 % (0-2); EOSINOPHILS ABSOLUTE AUTO 0.13 K/mm3 (0.00-0.68); EOSINOPHILS PERCENT AUTO 3 % (0-6); Hematocrit 33.3 % (33.0-51.0); Hemoglobin 10.4 g/dL (11.5-16.0); IMMATURE GRAN ABSOLUTE AUTO 0.02 K/mm3 (0.00-0.10); IMMATURE GRAN PERCENT AUTO 0 % (0-1); LYMPHOCYTES PERCENT AUTO 20 % (21-46); MONOCYTES ABSOLUTE AUTO 0.42 K/mm3 (0.16-1.47); MONOCYTES PERCENT AUTO 8 % (4-13); Mean Corpuscular HGB 29.9 pg (26.0-34.0); Mean Corpuscular HGB Conc 31.2 g/dL (31.5-36.5); Mean Corpuscular Volume 96 fL (80-100); Mean Platelet Volume 9.9 fL (9.1-12.4); NEUTROPHILS ABSOLUTE AUTO 3.43 K/mm3 (1.96-9.15); NEUTROPHILS PERCENT AUTO 68 % (41-73); Platelet Count 68 K/mm3 (150-400); RDW Coefficient Variation 13.9 % (11.7-14.2); RDW Standard Deviation 48.8 fL (35.1-46.3); Red Blood Cell Count 3.48 M/mm3 (3.80-5.20); White Blood Cell Count 5.02 K/mm3 (4.00-11.30)
[2019-12-19 05:30] LABS: Albumin, Blood 2.4 g/dL (3.4-5.0); Anion Gap 6 mmol/L (6-16); Blood Urea Nitrogen 18 mg/dL (8-24); Bun/Creatinine Ratio 19.4 (12.0-20.0); CO2, Blood 26 mmol/L (21-32); Calcium, Blood 9.7 mg/dL (8.5-10.1); Chloride, Blood 106 mmol/L (98-108); Creatinine, Blood 0.93 mg/dL (0.40-1.00); Glomerular Filtration Rate >60 (60-); Glucose, Blood 141 mg/dL (70-99); Magnesium, Blood 1.7 mg/dL (1.6-2.4); Phosphorus, Blood 2.5 mg/dL (2.5-4.9); Potassium, Blood 3.5 mmol/L (3.5-5.5); Sodium, Blood 138 mmol/L (136-145)
--- NOTE | 2019-12-19 18:42 | NUR ---
SHIFT SUMMARY PT A&O X1, PT HAS EXPERIENCED VISUAL AND AUDIOTORY HAULCINATION THROUGHOUT THIS SHIFT. PT IS ON RA WITH SL IN HER LEFT HAND THAT FLUSHES WELL, PT CLIFFORD PAIN THIS SHIFT. PT TOLORATED HER MEALS AND ATE WELL WITH ASSISTANCE AND REMINDERS. PT WAS 1 PERSON ASSIST WITH GAIT BELT AND TRANSFERED TO CHAIR, PT HAS BED ALARM ON AND WILL REPORT TO NOC RN.
[2019-12-20 02:06] LABS: HBSAG SCREEN Negative (Negative); HEP B CORE AB, TOT Negative (Negative); HEP C VIRUS AB 0.1 (0.0-0.9)
--- NOTE | 2019-12-20 05:57 | NUR ---
SHIFT SUMMARY AOXSELF & MONTH ONLY. VSS. DENIES PAIN, N/V OR DYSPNEA. HAS VISUAL & AUDITORY HALLUCINATIONS. HAS MUMMBLED, NONSENSICAL SPEECH @TIMES. HAS SLEPT WELL T/O NIGHT. GAVE PO BENEDRYL 1X FOR ITCHING LAST NIGHT. PT HAD 1 LIQUID ORANGE BROWM BM LAST NIGHT. 2 MAX ASSIST TO BSC. ATTENDS CHANGED PRN FOR INCONT. CALL LIGHT IN REACH & BED ALARM IN PLACE FOR SAFETY. WCTM.
[2019-12-20 09:17] LABS: Anion Gap 6 mmol/L (6-16); Blood Urea Nitrogen 20 mg/dL (8-24); Bun/Creatinine Ratio 20.9 (12.0-20.0); CO2, Blood 26 mmol/L (21-32); Calcium, Blood 9.6 mg/dL (8.5-10.1); Chloride, Blood 108 mmol/L (98-108); Creatinine, Blood 0.96 mg/dL (0.40-1.00); Glomerular Filtration Rate >60 (60-); Glucose, Blood 112 mg/dL (70-99); Potassium, Blood 3.4 mmol/L (3.5-5.5); Sodium, Blood 140 mmol/L (136-145)
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
[2019-12-21 05:36] LABS: BASOPHILS ABSOLUTE AUTO 0.03 K/mm3 (0.00-0.23); BASOPHILS PERCENT AUTO 1 % (0-2); EOSINOPHILS ABSOLUTE AUTO 0.13 K/mm3 (0.00-0.68); EOSINOPHILS PERCENT AUTO 4 % (0-6); Hematocrit 30.7 % (33.0-51.0); Hemoglobin 9.6 g/dL (11.5-16.0); IMMATURE GRAN ABSOLUTE AUTO 0.01 K/mm3 (0.00-0.10); IMMATURE GRAN PERCENT AUTO 0 % (0-1); LYMPHOCYTES ABSOLUTE AUTO 1.07 K/mm3 (0.84-5.20); LYMPHOCYTES PERCENT AUTO 32 % (21-46); MONOCYTES ABSOLUTE AUTO 0.31 K/mm3 (0.16-1.47); MONOCYTES PERCENT AUTO 9 % (4-13); Mean Corpuscular HGB Conc 31.3 g/dL (31.5-36.5); Mean Corpuscular Volume 96 fL (80-100); Mean Platelet Volume 10.9 fL (9.1-12.4); NEUTROPHILS ABSOLUTE AUTO 1.76 K/mm3 (1.96-9.15); NEUTROPHILS PERCENT AUTO 53 % (41-73); Platelet Count 70 K/mm3 (150-400); RDW Coefficient Variation 13.7 % (11.7-14.2); RDW Standard Deviation 47.9 fL (35.1-46.3); White Blood Cell Count 3.31 K/mm3 (4.00-11.30)
[2019-12-21 05:58] LABS: Alanine Aminotransfer (ALT/SGP 24 U/L (12-78); Albumin, Blood 2.2 g/dL (3.4-5.0); Albumin/Globulin Ratio 0.5 (0.8-1.8); Alk Phos 129 U/L (50-136); Anion Gap 5 mmol/L (6-16); Aspartate Aminotrans (AST/SGOT 34 U/L (12-37); Bilirubin, Total 0.8 mg/dL (0.1-1.0); Blood Urea Nitrogen 19 mg/dL (8-24); Bun/Creatinine Ratio 21.3 (12.0-20.0); CO2, Blood 26 mmol/L (21-32); Calcium, Blood 9.4 mg/dL (8.5-10.1); Chloride, Blood 108 mmol/L (98-108); Creatinine, Blood 0.89 mg/dL (0.40-1.00); Globulin, Blood 4.1 g/dL (2.2-4.0); Glomerular Filtration Rate >60 (60-); Glucose, Blood 149 mg/dL (70-99); Potassium, Blood 3.8 mmol/L (3.5-5.5); Sodium, Blood 139 mmol/L (136-145); Total Protein, Blood 6.3 g/dL (6.4-8.2)
--- NOTE | 2019-12-21 06:39 | NUR ---
SHIFT SUMMARY NO ACUTE CHANGES THIS SHIFT. VERY SLEEPY T/O SHIFT. WAKES EASILY TO VERBAL STIMULI, HOWEVER IT IS HARD FOR PT TO REMAIN AWAKE FOR QUESTIONS SHE KEEPS EYES CLOSED. AOX1-SELF ONLY. VSS. DENIES PAIN, N/V OR DYSPNEA. CALL LIGHT IN REACH. BED ALARM IN PLACE.
--- NOTE | 2019-12-21 14:21 | NUR ---
Patient is sitting on a chair and alert. Patient is not as clear mentally as she was during my last visit. Patient starts stories then most stories end with words that do not fit the context of what is being said. Patient goes through a whole range of empotions during the stories and most of the tales revolve around her grandpa and grandma and a couple around her Quinten. I listen empathically and provide companionship and prayer. Patient responds well and shows signs of an elevated mood. I will continue to remain available to patient and family.
[2019-12-21] MEDS ORDERED: Loratadine10 MG PO (14:40)
--- NOTE | 2019-12-21 16:00 | NUR ---
DISCHARGE INSTRUCTIONS COMPLETED AND DISCUSSED WITH PTS DAUGHTER, HAYLIE. TO [place] VIA W/C WITH TRANSPORTING.
[2019-12-22] MEDS ORDERED: METF500 PO (16:57)
[2019-12-22] MEDS ORDERED: FENO54 PO (16:57)
[2019-12-22] MEDS ORDERED: METO50ER PO (16:58)
[2019-12-22] MEDS ORDERED: Pravachol40 MG PO (16:58)
[2019-12-22] MEDS ORDERED: ZESTRIL40 M1 PO (16:58)
== END 2019-12-21 15:21 | disposition home health service (06) | DRG 689 ==
LOC: ER 17:23 → MEDS 21:42
PROVIDERS: Emergency Medicine; Hospitalist; Internal Medicine Endocrinology, Diabetes & Metabolism; Internal Medicine Gastroenterology; Nurse Practitioner Acute Care; ADMIT Internal Medicine
DX: N39.0 Urinary tract infection, site not specified (principal); G92 Toxic encephalopathy; F03.91 Unspecified dementia, unspecified severity, with behavioral disturbance; D69.3 Immune thrombocytopenic purpura; Z79.82 Long term (current) use of aspirin; Z79.84 Long term (current) use of oral hypoglycemic drugs; M10.9 Gout, unspecified; I12.9 Hypertensive chronic kidney disease with stage 1 through stage 4 chronic kidney disease, or unspecified chronic kidney disease; N18.9 Chronic kidney disease, unspecified; E11.22 Type 2 diabetes mellitus with diabetic chronic kidney disease; I48.0 Paroxysmal atrial fibrillation; E66.9 Obesity, unspecified; E11.65 Type 2 diabetes mellitus with hyperglycemia; E78.5 Hyperlipidemia, unspecified; D64.9 Anemia, unspecified; B96.1 Klebsiella pneumoniae [K. pneumoniae] as the cause of diseases classified elsewhere; E87.6 Hypokalemia; R26.81 Unsteadiness on feet; Z68.31 Body mass index [BMI] 31.0-31.9, adult
CPT/HCPCS: 36415; 70450; 71045; 80048; 80053; 80069; 81001; 82140; 82947; 83036; 83735; 84439; 84443; 84481; 85025; 86317; 86704; 86708; 86803; 87040; 87077; 87086; 87186; 87340; 93005; 93010; 96361; 96365; 97116; 97162; 97166; 97530; 97535; 99285-25; A9270; A9270-GY; G0378; G0480; J0360; J0696; J1630; J1650; J1815; J2060; J7030; J7050; J7120; P9612; Q0163

== ENCOUNTER 2019-12-22 15:49 | Observation (INO) | payer MEDICARE, OTHER ==
[~2019-12-22] VITALS: Ht 170.2 cm; Wt 90.9 kg
[~2019-12-22 15:49] MED LIST changes: +ASPIR 8181 M1 PO; +Loratadine10 MG PO; +Vitamin B-121000 MCG PO
[2019-12-22] MEDS ORDERED: FENO54 PO (16:57)
[2019-12-22] MEDS ORDERED: METF500 PO (16:57)
[2019-12-22] MEDS ORDERED: ZESTRIL40 M1 PO (16:58)
[2019-12-22] MEDS ORDERED: METO50ER PO (16:58)
[2019-12-22] MEDS ORDERED: Pravachol40 MG PO (16:58)
--- NOTE | 2019-12-22 18:22 | NUR ---
PT ARRIVED TO THE [facility] AT 1823 VIA GURNEY. SLIDE TRANSFERED TO THE BED. ORIENTED TO THE ROOM, CALL LIGHT WITHIN REACH.
--- NOTE | 2019-12-22 18:34 | NUR ---
PT BLOOD PRESSURE WAS 200/[address] HUFFMAN AND NOTIFIED. HE WILL PLACE ORDERS.
--- NOTE | 2019-12-22 20:38 | NUR ---
MESSAGE RECEIVED FROM RUG DRY ROOM ATTENDANT TO CALL PT. SPOUSE. SEVERAL ATTEMPTS MADE TO CONTACT USING NUMBER IN CHART. NO ANSWER, UNABLE TO LEAVE MSG VOICEMAIL HAS NOT BEEN SETUP. WILL CONT TO ATTEMPT TO REACH .
--- NOTE | 2019-12-22 23:48 | NUR ---
PT. AGITATED THIS EVENING. MOANING AND HOLLERING. PT. DENIES ANY PAIN. MEDICATED WITH HALDOL EARLY IN THE EVENING PER PROVIDER ORDER W/O GOOD EFFECT. NOTIFIED PROVIDER PAULY INDUSTRIAL MAINTENANCE MECHANIC NO IMPROVEMENT AND PT. AGITATION INCREASING. RECEIVED ORDER FOR 1X DOSE OF TEMAZEPAM PO AND ATIVAN PRN. PER PAULY INDUSTRIAL MAINTENANCE MECHANIC INSTRUCTED TO ADMINISTER 1MG OF ATIVAN FIRST. PT. MEDICATED WITH ATIVAN PER EMAR, TOLERATED WELL. WILL CONT TO MONITOR.
--- NOTE | 2019-12-23 06:42 | NUR ---
SHIFT SUMMARY- PT. CONFUSED AND RESTLESS T/O THE SHIFT. SEVERAL ATTEMPTS MADE TO GET OOB. MEDICATED PER EMAR, HAD MINIMAL EFFECT. PT WAS ABLE TO SLEEP ON/OFF. NO APPARENT DISTRESS NOTED. BP ELEVATED LAST NIGHT, TX WITH HYDRALAZINE PRN WITH GOOD EFFECT. OTHER VSS. PT. APPEARS TO BE RESTING COMFORTABLY IN BED. CALL LIGHT WITHIN REACH, SIDE RAILS UP X3, AND BED ALARM ON. WILL CONT TO MONITOR.
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
--- NOTE | 2019-12-23 17:28 | NUR ---
SHIFT SUMMARY- PT IS CONFUSED. SHE HAS SLEPT THROUGHOUT THIS SHIFT. SPOKE WITH LOG CUTTER AND PALATIVE CARE ABOUT THIS PT. SPOKE WITH DAUGHTER ON THE PHONE TO UPDATE. FAMILY WAS UNDER THE IMPRESSION THAT THE PT WOULD BE GOING DIRECTLY TO [facility] FOR REHAB. AFTER DISCUSSION WITH PHYSICAL THERAPY THE PT DOES NOT QUALIFY FOR SNF, DUE TO INABILITY TO WORK WITH THERAPY. SHE DID NOT EAT OR DRINK THIS SHIFT. DAUGHTER REPORTED THAT PT IS VERY SENSITIVE TO MEDICATIONS AND TYLENOL WILL MAKE HER SLEEP ALL DAY, POSSIBLE THAT RECIEVING ATIVAN HAS CAUSED HER TO BE TIRED TODAY. THERE WAS SOME DISCUSSION ABOUT HER NEEDING OFFICIAL COURT REPORTER CARE FACILITY WITH THE FAMILY, LOG CUTTER AND PALAITIVE CARE.
--- NOTE | 2019-12-24 04:30 | NUR ---
SHIFT SUMMARY RESPONDS TO PAINFUL STIMULI. CONFUSED AT BASELINE. WAS GIVEN ATIVAN YESTERDAY MORNING AND SLEPT THE MAJORITY OF THE DAY/NIGHT. THIS AM MORE AWAKE AND TALKATIVE; ANSWERING QUESTIONS AND FOLLOWING COMMANDS. NORMAL SALINE RUNNING @ 100 ML/HR. REPOSITIONED T/O SHIFT WITH ROUTINE BREIF CHANGES. BP ELEVATED; MEDICATED PER EMAR AT BEGINNING OF SHIFT. VSS STABLE. NO ACUTE CHANGES NOTED OVERNIGHT. BED REMAINS IN LOWEST POSITION; ALARM ON. CALL LIGHT WITHIN REACH. WCTM. REPORT TO ONCOMING RN.
--- NOTE | 2019-12-25 04:39 | NUR ---
SHIFT SUMMARY ALERT, CONFUSED. ANSWERS QUESTIONS MINIMALLY WITH ONE WORD ANSWERS. COOPERATIVE WITH CARE. NO C/O OF SIGNS OF PAIN/DISCOMFORT. MEDS WHOLE WITH WATER; NO ISSUES. APPEARED TO REST OFF AND ON T/O SHIFT. NOTABLE INCREASE IN BP THIS AM; WILL MEDICATE PER EMAR. ALL OTHER VS WNL. NO ACUTE CHANGES NOTED OVERNIGHT. BED REAMINS IN LOWEST POSITION; ALARM ON. CALL LIGHT AND BELONGINGS WITHIN REACH. WCTM. REPORT TO ONCOMING RN.
--- NOTE | 2019-12-25 18:08 | NUR ---
SHIFT SUMMARY. A&OX1, PLEASANT AND COOPERATIVE WITH CARE, PT DID NOT BECOME UPSET THIS SHIFT. BED AND CHAIR ALARM UTILIZED FOR SAFETY. PT DENIES PAIN, NO S/SX OF DISCOMFORT. PT DENIES ITCHING THIS SHIFT. BREATHING REGULAR AND NONLABORED. PT CONTINUED WITH HTN THIS SHIFT, DR. ALONSO ADDED NEW MEDICATION, FIRST DOSE GIVEN THIS EVENING. SPOKE WITH PT'S DAUGHTER JOVITA, SHE REPORTS THAT SHE WILL BE FLYING FROM [facility] IN THE MORNING TO ASSIST WITH DISCHARGE PLANNING. NO OTHER CHANGES OR CONCERNS.
--- NOTE | 2019-12-26 03:29 | NUR ---
SHIFT SUMMARY ALERT, CONFUSED AND ANSWERS QUESTIONS TO THE BEST OF HER ABILITY. COOPERATIVE WITH CARE. NO C/O OR SIGNS OF PAIN/DISCOFORT. APPEARED TO REST MUCH OF SHIFT. ROUTINE ATTENDS CHECKS WITH REPOSITIONING; NO ISSUES VOIDING. 1-2P ASSIST /c FWW TO BED FROM CHAIR, CUEING NEEDED. NO ITCHING NOTED. NO ACUTE CHANGES NOTED OVERNIGHT. BED REAMINED IN LOWEST POSITION; ALARM ON. CALL LIGHT WITHIN REACH. WCTM. REPORT TO ONCOMING RN.
[2019-12-26 06:15] LABS: Anion Gap 7 mmol/L (6-16); Blood Urea Nitrogen 13 mg/dL (8-24); Bun/Creatinine Ratio 14.3 (12.0-20.0); CO2, Blood 29 mmol/L (21-32); Calcium, Blood 10.1 mg/dL (8.5-10.1); Chloride, Blood 103 mmol/L (98-108); Creatinine, Blood 0.91 mg/dL (0.40-1.00); Glomerular Filtration Rate >60 (60-); Glucose, Blood 121 mg/dL (70-99); Potassium, Blood 3.3 mmol/L (3.5-5.5); Sodium, Blood 139 mmol/L (136-145)
--- NOTE | 2019-12-26 15:11 | NUR ---
Spiritual care visit conducted. Patient is lying back on fold out chair and resting. Patient awakens a bit but remains groggy. Patient asks if I could say a prayer for her and she states, "Please Do." I gladly provide prayer. Patient verbalizes appreciation and then I let patient return to resting. I will continue to remain available to patient and family.
--- NOTE | 2019-12-26 18:19 | NUR ---
SHIFT SUMMARY. A&OX1, RECOGNIZES FAMILY. PT IS PLEASANT AND COOPERATIVE WITH CARE, IS ABLE TO FOLLOW SIMPLE DIRECTIONS AT TIMES. PT WITHOUT S/SX OF DISCOMFORT OR DISTRESS. FAIR MEAL INTAKE. PARTICIPATES WITH PT/OT AND TOLERATES WELL. CM WILL ARRANGE FAMILY MEETING TOMORROW FOR ADVANCED DISCHARGE PLANNING. FAMILY IS AWARE. NO NEW CHANGES OR CONCERNS.
--- NOTE | 2019-12-27 04:10 | NUR ---
SHIFT SUMMARY: BP ELEVATED THIS AM. PRN HYDRALAZINE GIVEN PER ORDERS. WILL REEVALUATE. PT AA0 TO SELF AND FAMILY ONLY. PLEASANTLY CONFUSED, EASILY REORIENTS. T/F W/ 1 ASSIST. INCONTINENT OF URINE. HYDROXYZINE GIVEN FOR ITCH X 1. APPEARS EFFECTIVE. NO ACUTE CHANGES OVERNIGHT, WILL CONT TO MONITOR.
[2019-12-27 09:15] LABS: Bun/Creatinine Ratio 11.8 (12.0-20.0); Calcium, Blood 10.5 mg/dL (8.5-10.1); Creatinine, Blood 1.02 mg/dL (0.40-1.00); Potassium, Blood 3.3 mmol/L (3.5-5.5)
--- NOTE | 2019-12-27 09:48 | NUR ---
Brief visit to pt earlier this am. She was in recliner chair, with speaker for TV to ear, watching TV. Awake and alert appearing. We exchanged greetings. She seemed intent on watching TV. She denies pain or distress. No further intervention at this time. We will remain available to family if needed for advanced care planning.
--- NOTE | 2019-12-27 12:58 | NUR ---
Spiritual care visit attempted. Patient is sleeping and patient's daughter is bedside, Meghan, is bedside. I talk quietly with Meghan briefly and explain that I will attempt a visit at another time.
--- NOTE | 2019-12-27 18:03 | NUR ---
SHIFT SUMMARY- PT A/O TO SELF AND FAMILY. PT DENIES ANY COMPLAINTS T/O THE DAY. LS CLEAR, ON RA. PT HAS BEEN HYPERTENSIVE, NORVASC ADDED. 1 ASSIST WITH FWW, PT AMBULATED IN HALLS WITH THERAPY. PLAN TO DISCHARGE HOME TOMORROW WITH HOME HEALTH AND FAMILY. NO OTHER ACUTE CHANGES THIS SHIFT.
--- NOTE | 2019-12-28 04:36 | NUR ---
SHIFT SUMMARY PT HAS RESTED MOST OF THE NIGHT. SHE DOES HAVE PERIODS WHERE SHE ATTEMPTS TO CLIMB OUT OF BED. DOES NOT USE CALL LIGHT, PT IS DIRECTABLE. A/O TO SELF ONLY WITH NONSENSICAL SPEECH. PLESANT. POSSIBLE DC TODAY. NO ACUTE CHANGES TO REPORT OVERNIGHT. BED IN LOWEST POSITION, CALL LIGHT WITHIN REACH. WILL CONTINUE TO MONITOR AND REPORT TO ONCOMING RN.
[2019-12-28 05:41] LABS: Bun/Creatinine Ratio 12.1 (12.0-20.0); Calcium, Blood 10.5 mg/dL (8.5-10.1); Creatinine, Blood 1.07 mg/dL (0.40-1.00); Potassium, Blood 3.5 mmol/L (3.5-5.5)
[2019-12-28] MEDS ORDERED: ACET325 PO (11:25)
[2019-12-28] MEDS ORDERED: HYDCHL25 PO (11:26)
[2019-12-28] MEDS ORDERED: AMLO5 PO (11:26)
[2019-12-28] MEDS ORDERED: Nyamyc15 GM TOP (11:26)
[2019-12-28] MEDS ORDERED: POTA10T PO (11:27)
[2019-12-28] MEDS ORDERED: TRAZ50 PO (11:27)
--- NOTE | 2019-12-28 12:32 | NUR ---
DISCHARGE INSTRUCTIONS REVIEWED WITH PT DAUGHTER MARIA. [facility] TO DELIVER A HOSPITAL BED. [facility] TO FOLLOW PT. RX FAXED TO PHARMACY. PT WITH NO IV ACCESS. PT AWAITING RIDE HOME AT THIS TIME.
--- NOTE | 2019-12-28 12:54 | NUR ---
PT DISCHARGED HOME WITH DAUGHTERS AT 1246. PT ESCORTED OUT VIA W/C.
== END 2019-12-28 12:46 | disposition home health service (06) ==
LOC: ER 15:49 → MEDS 17:25 → ENPENDDIS 12-28 12:10 → MEDS 12-28 12:46
PROVIDERS: Family Medicine; Student in an Organized Health Care Education/Training Program; ADMIT Internal Medicine Endocrinology, Diabetes & Metabolism
DX: F03.91 Unspecified dementia, unspecified severity, with behavioral disturbance (principal); F05 Delirium due to known physiological condition; R26.9 Unspecified abnormalities of gait and mobility; I10 Essential (primary) hypertension; E11.9 Type 2 diabetes mellitus without complications; E66.9 Obesity, unspecified; D69.3 Immune thrombocytopenic purpura; R62.7 Adult failure to thrive; E87.6 Hypokalemia; Z79.84 Long term (current) use of oral hypoglycemic drugs; Z91.81 History of falling; Z87.440 Personal history of urinary (tract) infections; Z79.899 Other long term (current) drug therapy; Z68.31 Body mass index [BMI] 31.0-31.9, adult; Z88.8 Allergy status to other drugs, medicaments and biological substances
CPT/HCPCS: 36415; 80048; 80053; 81001; 82947; 83605; 85025; 87086; 96360; 96361; 97110; 97163; 97166; 97530; 97530-CO; 97535; 99285; 99285-25; A9270; A9270-GY; G0378; J0360; J1630; J1650; J2060; J7030; U0002

== ENCOUNTER 2020-04-23 22:50 | Emergency (ER) | payer OTHER, MEDICARE ==
[~2020-04-23] VITALS: Ht 172.7 cm; Wt 86.2 kg
[~2020-04-23 22:50] MED LIST changes: +AMLO5 PO; +FENO54 PO; +METO50ER PO; +Nyamyc15 GM TOP; +POTA10T PO; +Pravachol40 MG PO; +TRAZ50 PO; +ZESTRIL40 M1 PO
[2020-04-23 23:29] LABS: Source, Urine Clean Catch
[2020-04-23 23:31] LABS: Bilirubin, Urine Neg (Neg); Blood, Urine 5+ (Neg); Glucose Qualitative, Urine 1+ (Neg); Ketones, Urine Neg (Neg); Leukocyte Esterase, Urine 1+ (Neg); Nitrite, Urine Neg (Neg); Protein, Urine 3+ (Neg); Specific Gravity, Urine 1.025 (1.003-1.022); Urobilinogen, Urine NORM (Normal)
[2020-04-23 23:37] LABS: Appearance, Urine Hazy (Clear); Color, Urine Yellow (P-Yellow)
[2020-04-23 23:38] LABS: Bacteria Few /hpf; Red Blood Cells, Urine TNTC /hpf (0-2); Squamous Epithelial Cells Mod /hpf (Few)
== END 2020-04-24 01:15 | disposition home or self-care (01) ==
LOC: ER 22:50
PROVIDERS: Emergency Medicine
DX: R41.82 Altered mental status, unspecified (principal); I10 Essential (primary) hypertension; E11.9 Type 2 diabetes mellitus without complications; K21.9 Gastro-esophageal reflux disease without esophagitis; I48.0 Paroxysmal atrial fibrillation; E78.5 Hyperlipidemia, unspecified; F03.90 Unspecified dementia, unspecified severity, without behavioral disturbance, psychotic disturbance, mood disturbance, and anxiety; N18.9 Chronic kidney disease, unspecified; Z88.8 Allergy status to other drugs, medicaments and biological substances; Z79.84 Long term (current) use of oral hypoglycemic drugs; Z79.899 Other long term (current) drug therapy
CPT/HCPCS: 81001; 87086; 99285

== ENCOUNTER 2020-06-14 23:38 | Emergency (ER) | payer MEDICARE, OTHER ==
[~2020-06-14] VITALS: Ht 170.2 cm; Wt 86.2 kg
[2020-06-15 00:37] LABS: BASOPHILS ABSOLUTE AUTO 0.03 K/mm3 (0.00-0.23); BASOPHILS PERCENT AUTO 1 % (0-2); EOSINOPHILS ABSOLUTE AUTO 0.18 K/mm3 (0.00-0.68); EOSINOPHILS PERCENT AUTO 4 % (0-6); Hematocrit 33.1 % (33.0-51.0); Hemoglobin 10.4 g/dL (11.5-16.0); IMMATURE GRAN ABSOLUTE AUTO 0.01 K/mm3 (0.00-0.10); IMMATURE GRAN PERCENT AUTO 0 % (0-1); LYMPHOCYTES ABSOLUTE AUTO 1.68 K/mm3 (0.84-5.20); LYMPHOCYTES PERCENT AUTO 37 % (21-46); MONOCYTES ABSOLUTE AUTO 0.39 K/mm3 (0.16-1.47); MONOCYTES PERCENT AUTO 9 % (4-13); Mean Corpuscular HGB 30.7 pg (26.0-34.0); Mean Corpuscular HGB Conc 31.4 g/dL (31.5-36.5); Mean Corpuscular Volume 98 fL (80-100); Mean Platelet Volume 9.9 fL (9.1-12.4); NEUTROPHILS ABSOLUTE AUTO 2.24 K/mm3 (1.96-9.15); NEUTROPHILS PERCENT AUTO 49 % (41-73); Platelet Count 80 K/mm3 (150-400); RDW Coefficient Variation 14.1 % (11.7-14.2); RDW Standard Deviation 50.3 fL (35.1-46.3); Red Blood Cell Count 3.39 M/mm3 (3.80-5.20); White Blood Cell Count 4.53 K/mm3 (4.00-11.30)
[2020-06-15 00:59] LABS: Alanine Aminotransfer (ALT/SGP 36 U/L (12-78); Albumin, Blood 3.1 g/dL (3.4-5.0); Albumin/Globulin Ratio 0.8 (0.8-1.8); Alk Phos 134 U/L (50-136); Anion Gap 6 mmol/L (6-16); Aspartate Aminotrans (AST/SGOT 49 U/L (12-37); Bilirubin, Total 0.3 mg/dL (0.1-1.0); Blood Urea Nitrogen 25 mg/dL (8-24); CO2, Blood 23 mmol/L (21-32); Calcium, Blood 10.1 mg/dL (8.5-10.1); Chloride, Blood 113 mmol/L (98-108); Creatinine, Blood 1.19 mg/dL (0.40-1.00); Glomerular Filtration Rate 47 (60-); Glucose, Blood 187 mg/dL (70-99); Potassium, Blood 4.1 mmol/L (3.5-5.5); Sodium, Blood 142 mmol/L (136-145); Total Protein, Blood 7.1 g/dL (6.4-8.2); Troponin I <0.015 ng/mL (0.000-0.040)
[2020-06-15 01:16] LABS: Source, Urine Clean Catch
[2020-06-15 01:18] LABS: Bilirubin, Urine Neg (Neg); Blood, Urine 4+ (Neg); Glucose Qualitative, Urine Neg (Neg); Ketones, Urine Neg (Neg); Leukocyte Esterase, Urine 3+ (Neg); Nitrite, Urine Neg (Neg); Protein, Urine 3+ (Neg); Urobilinogen, Urine NORM (Normal)
[2020-06-15 01:25] LABS: Appearance, Urine Hazy (Clear); Color, Urine Yellow (P-Yellow)
[2020-06-15 01:26] LABS: Bacteria Mod /hpf; Squamous Epithelial Cells Few /hpf (Few); White Blood Cells, Urine TNTC /hpf (0-5)
[2020-06-15] MEDS ORDERED: Keflex500 MG PO (01:47)
== END 2020-06-15 02:08 | disposition home or self-care (01) ==
LOC: ER 23:38
PROVIDERS: Emergency Medicine
DX: N39.0 Urinary tract infection, site not specified (principal); R55 Syncope and collapse; K21.9 Gastro-esophageal reflux disease without esophagitis; I48.0 Paroxysmal atrial fibrillation; N18.9 Chronic kidney disease, unspecified; F03.90 Unspecified dementia, unspecified severity, without behavioral disturbance, psychotic disturbance, mood disturbance, and anxiety; Z79.899 Other long term (current) drug therapy; Z79.84 Long term (current) use of oral hypoglycemic drugs
CPT/HCPCS: 80053; 81001; 84484; 85025; 87086; 93005; 93010; 99284-25; A9270-GY

== ENCOUNTER 2020-08-02 20:43 | Emergency (ER) | payer OTHER, MEDICARE ==
[~2020-08-02] VITALS: Ht 170.2 cm; Wt 69.4 kg
[~2020-08-02 20:43] MED LIST changes: +Keflex500 MG PO
[2020-08-02 21:54] LABS: BASOPHILS ABSOLUTE AUTO 0.03 K/mm3 (0.00-0.23); BASOPHILS PERCENT AUTO 1 % (0-2); EOSINOPHILS ABSOLUTE AUTO 0.21 K/mm3 (0.00-0.68); EOSINOPHILS PERCENT AUTO 4 % (0-6); Hematocrit 31.4 % (33.0-51.0); Hemoglobin 9.9 g/dL (11.5-16.0); IMMATURE GRAN ABSOLUTE AUTO 0.01 K/mm3 (0.00-0.10); IMMATURE GRAN PERCENT AUTO 0 % (0-1); LYMPHOCYTES ABSOLUTE AUTO 1.03 K/mm3 (0.84-5.20); LYMPHOCYTES PERCENT AUTO 21 % (21-46); MONOCYTES ABSOLUTE AUTO 0.37 K/mm3 (0.16-1.47); MONOCYTES PERCENT AUTO 8 % (4-13); Mean Corpuscular HGB 30.8 pg (26.0-34.0); Mean Corpuscular HGB Conc 31.5 g/dL (31.5-36.5); Mean Corpuscular Volume 98 fL (80-100); Mean Platelet Volume 10.5 fL (9.1-12.4); NEUTROPHILS ABSOLUTE AUTO 3.24 K/mm3 (1.96-9.15); NEUTROPHILS PERCENT AUTO 66 % (41-73); Platelet Count 72 K/mm3 (150-400); RDW Coefficient Variation 14.1 % (11.7-14.2); RDW Standard Deviation 50.6 fL (35.1-46.3); Red Blood Cell Count 3.21 M/mm3 (3.80-5.20); White Blood Cell Count 4.89 K/mm3 (4.00-11.30)
[2020-08-02 22:11] LABS: Albumin, Blood 2.7 g/dL (3.4-5.0); Albumin/Globulin Ratio 0.7 (0.8-1.8); Bilirubin, Total 0.5 mg/dL (0.1-1.0); Bun/Creatinine Ratio 11.3 (12.0-20.0); Calcium, Blood 9.4 mg/dL (8.5-10.1); Creatinine, Blood 0.97 mg/dL (0.40-1.00); Globulin, Blood 4.1 g/dL (2.2-4.0); Potassium, Blood 4.3 mmol/L (3.5-5.5); Total Protein, Blood 6.8 g/dL (6.4-8.2)
[2020-10-17] MEDS ORDERED: ALLO100 PO (12:43)
[2020-10-17] MEDS ORDERED: Acetaminophen650 M1 PO (12:43)
[2020-10-17] MEDS ORDERED: METF500 PO (12:44)
[2020-10-17] MEDS ORDERED: C COMPLEX1000 M2 PO (12:44)
[2020-10-17] MEDS ORDERED: NORVASC2.5 MG PO (12:44)
[2020-10-17] MEDS ORDERED: ZESTRIL40 M2 PO (12:44)
[2020-10-17] MEDS ORDERED: TOPROL XL50 MG PO (12:45)
[2020-10-17] MEDS ORDERED: Pravastatin Sod40 MG PO (12:45)
== END 2020-08-02 22:34 | disposition home or self-care (01) ==
LOC: ER 20:43
PROVIDERS: Physician Assistant
DX: R19.7 Diarrhea, unspecified (principal); R11.2 Nausea with vomiting, unspecified; E78.5 Hyperlipidemia, unspecified; I48.0 Paroxysmal atrial fibrillation; I12.9 Hypertensive chronic kidney disease with stage 1 through stage 4 chronic kidney disease, or unspecified chronic kidney disease; E11.22 Type 2 diabetes mellitus with diabetic chronic kidney disease; N18.9 Chronic kidney disease, unspecified; Z79.84 Long term (current) use of oral hypoglycemic drugs; Z88.8 Allergy status to other drugs, medicaments and biological substances; Z79.899 Other long term (current) drug therapy
CPT/HCPCS: 80053; 85025; 96360; 99284-25; A9270; J7030

== ENCOUNTER 2020-12-13 12:46 | Emergency (ER) | payer MEDICARE, OTHER ==
[~2020-12-13] VITALS: Ht 170.2 cm; Wt 87.5 kg
[~2020-12-13 12:46] MED LIST changes: +Acetaminophen650 M1 PO; +C COMPLEX1000 M2 PO; +NORVASC2.5 MG PO; +Pravastatin Sod40 MG PO; +TOPROL XL50 MG PO; +ZESTRIL40 M2 PO
== END 2020-12-13 16:45 | disposition home or self-care (01) ==
LOC: ER 12:46
DX: M25.561 Pain in right knee (principal); G89.29 Other chronic pain; I12.9 Hypertensive chronic kidney disease with stage 1 through stage 4 chronic kidney disease, or unspecified chronic kidney disease; E11.22 Type 2 diabetes mellitus with diabetic chronic kidney disease; N18.9 Chronic kidney disease, unspecified; E78.5 Hyperlipidemia, unspecified; I48.0 Paroxysmal atrial fibrillation; M79.604 Pain in right leg; K21.9 Gastro-esophageal reflux disease without esophagitis; Z79.84 Long term (current) use of oral hypoglycemic drugs; Z79.899 Other long term (current) drug therapy; Z88.8 Allergy status to other drugs, medicaments and biological substances
CPT/HCPCS: 73562-RT; 93971; 99284-25

== ENCOUNTER → 2021-07-26 | Outpatient (CLI) | payer MEDICARE, OTHER ==
[2021-07-26 11:48] LABS: Microalbumin, Urine Quant. 85.3 mg/L (0.000-20.000); Protein, Urine Quantitative 32.8 mg/dL (0.0-11.9)
== END | disposition home or self-care (01) ==
LOC: LAB SHORT 09:55
PROVIDERS: Internal Medicine Nephrology
DX: N18.30 Chronic kidney disease, stage 3 unspecified (principal); D63.1 Anemia in chronic kidney disease; N25.81 Secondary hyperparathyroidism of renal origin; E55.9 Vitamin D deficiency, unspecified; E78.00 Pure hypercholesterolemia, unspecified; R76.9 Abnormal immunological finding in serum, unspecified; R94.5 Abnormal results of liver function studies; R94.6 Abnormal results of thyroid function studies
CPT/HCPCS: 81050; 82043; 82570; 84156

== ENCOUNTER → 2021-09-11 | Outpatient (CLI) | payer MEDICARE, OTHER ==
[2021-09-11 13:00] LABS: Creatinine, Urine Random 65.4 mg/dL (27.00-270.00); Microalb/Creat Ratio UR, Rand 26.147 mg/g (0.000-30.000); Microalbumin, Random Urine 17.1 mg/L (0.000-20.000)
== END ==
LOC: PLD 08:00 → LAB SHORT 08:00
PROVIDERS: Physician Assistant
DX: N18.30 Chronic kidney disease, stage 3 unspecified (principal)
CPT/HCPCS: 82043; 82570

== ENCOUNTER → 2021-10-16 | Outpatient (CLI) | payer MEDICARE, OTHER ==
[2021-10-16 11:09] LABS: Microalbumin, Urine Quant. 42.8 mg/L (0.000-20.000); Protein, Urine Quantitative 24.1 mg/dL (0.0-11.9)
== END | disposition home or self-care (01) ==
LOC: LAB SHORT 09:00 → LAB FUT 10-14 09:20
PROVIDERS: Internal Medicine Nephrology
DX: N18.30 Chronic kidney disease, stage 3 unspecified (principal); D63.1 Anemia in chronic kidney disease; N25.81 Secondary hyperparathyroidism of renal origin; E55.9 Vitamin D deficiency, unspecified; E78.00 Pure hypercholesterolemia, unspecified; D51.8 Other vitamin B12 deficiency anemias; D52.8 Other folate deficiency anemias; D50.9 Iron deficiency anemia, unspecified; R76.9 Abnormal immunological finding in serum, unspecified; R94.5 Abnormal results of liver function studies; R94.6 Abnormal results of thyroid function studies
CPT/HCPCS: 81050; 82043; 82570; 84156

== ENCOUNTER 2022-01-23 18:27 | Emergency (ER) | payer MEDICARE, OTHER ==
[~2022-01-23] VITALS: Ht 170.2 cm; Wt 79.4 kg
== END 2022-01-23 18:33 | disposition home or self-care (01) ==
LOC: ER 18:27
DX: M54.50 Low back pain, unspecified (principal); I12.9 Hypertensive chronic kidney disease with stage 1 through stage 4 chronic kidney disease, or unspecified chronic kidney disease; N18.9 Chronic kidney disease, unspecified; E11.22 Type 2 diabetes mellitus with diabetic chronic kidney disease; E78.5 Hyperlipidemia, unspecified; Z79.899 Other long term (current) drug therapy; Z79.84 Long term (current) use of oral hypoglycemic drugs; Z88.8 Allergy status to other drugs, medicaments and biological substances
CPT/HCPCS: 99282

== ENCOUNTER → 2022-07-17 | Outpatient (CLI) | payer MEDICARE, OTHER | END | disposition home or self-care (01) | LOC: LAB SHORT 11:00 | DX: R30.0 Dysuria (principal) | CPT/HCPCS: 87077; 87086; 87147; 87186 ==

== ENCOUNTER 2024-02-18 18:49 | Observation (INO) | payer MEDICARE, OTHER ==
[~2024-02-18] VITALS: Ht 165.1 cm; Wt 70.3 kg
[~2024-02-18 18:49] MED LIST changes: -NORVASC2.5 MG PO
[2024-02-18 20:05] LABS: Source, Urine Straight Cath
[2024-02-18 20:09] LABS: Hematocrit 27.1 % (33.0-51.0); Hemoglobin 8.3 g/dL (11.5-16.0); Mean Corpuscular HGB 29.5 pg (26.0-34.0); Mean Corpuscular HGB Conc 30.6 g/dL (31.5-36.5); Mean Corpuscular Volume 96 fL (80-100); Mean Platelet Volume 10.4 fL (9.1-12.4); Platelet Count 53 K/mm3 (150-400); RDW Coefficient Variation 18.1 % (11.7-14.2); RDW Standard Deviation 63.7 fL (35.1-46.3); Red Blood Cell Count 2.81 M/mm3 (3.80-5.20); White Blood Cell Count 5.19 K/mm3 (4.00-11.30)
[2024-02-18 20:18] LABS: Appearance, Urine Cloudy (Clear); Bilirubin, Urine Neg (Neg); Blood, Urine 3+ (Neg); Color, Urine Yellow (P-Yellow); Glucose Qualitative, Urine Neg (Neg); Ketones, Urine Neg (Neg); Leukocyte Esterase, Urine 3+ (Neg); Nitrite, Urine Pos (Neg); Protein, Urine 3+ (Neg); Specific Gravity, Urine 1.025 (1.003-1.022); Urobilinogen, Urine 1+ (Normal)
[2024-02-18 20:25] LABS: Bacteria Many /hpf; Squamous Epithelial Cells Rare /hpf (Few); White Blood Cells, Urine TNTC /hpf (0-5)
[2024-02-18 20:39] LABS: Free Thyroxine 1.07 ng/dL (0.70-1.60); Magnesium, Blood 2.4 mg/dL (1.6-2.4)
[2024-02-18 20:58] LABS: Bun/Creatinine Ratio 16.8 (12.0-20.0); Calcium, Blood 9.9 mg/dL (8.5-10.1); Creatinine, Blood 2.26 mg/dL (0.40-1.00); Potassium, Blood 4.8 mmol/L (3.5-5.5); Thyroid Stimulating Hormone 0.739 uIU/mL (0.360-4.800)
[2024-02-18 21:19] LABS: BASOPHILS ABSOLUTE MAN 0.05 K/mm3 (0.00-0.23); BASOPHILS PERCENT MAN 1 % (0-2); EOSINOPHILS ABSOLUTE MAN 0.25 K/mm3 (0.00-0.68); EOSINOPHILS PERCENT MAN 5 % (0-6); LYMPHOCYTES ABSOLUTE MAN 0.88 K/mm3 (0.84-5.20); LYMPHOCYTES PERCENT MAN 17 % (21-46); MONOCYTES ABSOLUTE MAN 0.36 K/mm3 (0.16-1.47); MONOCYTES PERCENT MAN 7 % (4-13); NEUTROPHILS ABSOLUTE MAN 3.63 K/mm3 (1.96-9.15); SEG NEUTROPHILS PERCENT MAN 70 % (41-73); TOTAL CELLS COUNTED 100
[2024-02-18] MEDS ORDERED: CefTRIAXone Sodium 1,000 MG in NS 100 ML IV ONE (21:55)
[2024-02-18] MEDS ORDERED: CefTRIAXone 1000 MG Vial ONE (22:29)
[2024-02-18] MEDS ORDERED: NS 100 ML IV ONE (22:29)
[2024-02-19] VITALS (7 sets, daily range): BP systolic 119–225; BP diastolic 55–179
[2024-02-19] MEDS ORDERED: Acetaminophen 325 MG TABLET PO PRN (05:25)
[2024-02-19] MEDS ORDERED: Lactated Ringer's 1,000 ML IV SCH (05:25)
[2024-02-19] MEDS ORDERED: Ondansetron 4 MG SoluTab MM PRN (05:30)
[2024-02-19] MEDS ORDERED: OxyCODONE HCL 5 MG TAB PO PRN (05:30)
[2024-02-19 05:57] LABS: BASOPHILS ABSOLUTE AUTO 0.02 K/mm3 (0.00-0.23); BASOPHILS PERCENT AUTO 1 % (0-2); EOSINOPHILS PERCENT AUTO 6 % (0-6); Hematocrit 25.4 % (33.0-51.0); Hemoglobin 7.9 g/dL (11.5-16.0); IMMATURE GRAN PERCENT AUTO 0 % (0-1); LYMPHOCYTES PERCENT AUTO 20 % (21-46); MONOCYTES ABSOLUTE AUTO 0.28 K/mm3 (0.16-1.47); MONOCYTES PERCENT AUTO 8 % (4-13); Mean Corpuscular HGB 29.7 pg (26.0-34.0); Mean Corpuscular HGB Conc 31.1 g/dL (31.5-36.5); Mean Corpuscular Volume 96 fL (80-100); Mean Platelet Volume 9.5 fL (9.1-12.4); NEUTROPHILS ABSOLUTE AUTO 2.35 K/mm3 (1.96-9.15); NEUTROPHILS PERCENT AUTO 66 % (41-73); RDW Standard Deviation 62.3 fL (35.1-46.3); RETICULOCYTE ABSOLUTE 0.0641 M/mm3 (0.0200-0.1100); RETICULOCYTE COUNT PERCENT 2.41 % (0.50-2.50); Red Blood Cell Count 2.66 M/mm3 (3.80-5.20); White Blood Cell Count 3.55 K/mm3 (4.00-11.30)
[2024-02-19 06:09] LABS: Platelet Count 40 K/mm3 (150-400)
[2024-02-19 06:49] LABS: Percent Saturation 10.5 % (15.0-50.0)
[2024-02-19 07:40] LABS: Bun/Creatinine Ratio 17.2 (12.0-20.0); Calcium, Blood 9.7 mg/dL (8.5-10.1); Creatinine, Blood 2.04 mg/dL (0.40-1.00); Potassium, Blood 4.1 mmol/L (3.5-5.5)
[2024-02-19] MEDS ORDERED: Lactobacil 2-S.Thermo-Bifido 1 1 Cap PO SCH (09:00)
[2024-02-19] MEDS ORDERED: Enoxaparin 30 MG/0.3 ML SYR SC SCH (09:00)
[2024-02-19] MEDS ORDERED: CefTRIAXone Sodium 1,000 MG in NS 100 ML IV SCH (15:00)
[2024-02-19] MEDS ORDERED: LevoFLOXacin 750 MG Tab PO SCH (16:00)
[2024-02-19] MEDS ORDERED: FUROSEMIDE20 MG PO ×2 (16:02)
[2024-02-19] MEDS ORDERED: KLOR-CON 1010 ME9 PO ×2 (16:03)
[2024-02-19] MEDS ORDERED: DONEPEZIL HCL5 M2 PO ×2 (16:04)
[2024-02-19] MEDS ORDERED: ESCI10 PO ×2 (16:04)
--- NOTE | 2024-02-19 17:15 | NUR ---
SHIFT SUMMARY PT RESTING QUIETLY AT START OF SHIFT. WOKE EASILY FOR CARE. PT CONFUSED BUT PLEASANT. NEW ADMIT PRIOR TO START OF SHIFT. IVF'S TO BE STARTED, BUT PT PULLED IV SITE. MULTIPLE ATTEMPTS MADE BY SEVERAL NURSES; UNSUCCESSFUL. POWER GLIDE PLACE TO IRMA AND WRAPPED. PT ABLE TO PULL OUT PRIOR TO RECEIVING IVF'S. DR HUFFMAN TO ; NEW ORDERS PLACED. PT ABLE TO EAT AND DRINK. PO ABX ORDERED AND GIVEN; ADMITTED FOR UTI. PT'S DAUGHTER TO FOR SEVERAL HOURS, REPORTING PT AT BASELINE CONFUSION. PT LIVES WITH DAUGHTER. INCONTINENT OF BLADDER. BED BATH AND LINEN CHANGE TODAY. NO C/O. BED ALARM ON FOR SAFETY. CALL LT IN REACH.
--- NOTE | 2024-02-19 20:04 | NUR ---
BP ELEVATED, 225/179. FLOUR DISTRIBUTOR STATED TAKEN TWICE. MD NOTIFIED AND TO REVIEW FOR ORDERS.
[2024-02-19] MEDS ORDERED: HydrALAZINE HCl 20 MG / ML 1ML Vial IV PRN (20:15)
[2024-02-19] MEDS ORDERED: AmLODIPine Besylate 5 MG Tab PO SCH (21:00)
[2024-02-19] MEDS ORDERED: Lisinopril 20 MG Tab PO SCH (23:00)
[2024-02-20 02:36] VITALS: BP 130/52
--- NOTE | 2024-02-20 03:16 | NUR ---
DATABASE SOFTWARE TECHNICIAN SUMMARY BP WAS ELEVATED AT SHIFT COMMENCE. NO ANTIHYPERTENSIVE MED WAS ORDERED. MD FORM PRESSER NOTIFIED AND NORVASC 5 MG PO X 1 ORDERED AND ADMINISTERED. MED EFFFECTIVE. BP TRENDED DOWN TO WNL. PT AGITATED INTERMITTENTLY. WOULD CALL OUT BUT WHEN STAFF CAME TO SEE HER, DENIED PAIN AND WOULD SMILE. ENCOURAGED TO GET SOME REST. INCONT AND CHANGED. DAUGHTER CALLED EARLIER AND PT VOICED IT WAS OK TO SPEAK WITH HER. DAUGHTER VOICED SHE WOULD COME IN LATER TODAY TO VISIT. CALL LIGHT IN REACH, RAILS UP X 2 AND BED IN LOW POSITION FOR SAFETY. RESTING QUIETLY AT THIS TIME. WILL CONT TO MONITOR
[2024-02-20 05:00] LABS: BASOPHILS ABSOLUTE AUTO 0.02 K/mm3 (0.00-0.23); BASOPHILS PERCENT AUTO 1 % (0-2); EOSINOPHILS ABSOLUTE AUTO 0.29 K/mm3 (0.00-0.68); EOSINOPHILS PERCENT AUTO 8 % (0-6); Hematocrit 25.8 % (33.0-51.0); Hemoglobin 8.3 g/dL (11.5-16.0); IMMATURE GRAN ABSOLUTE AUTO 0.01 K/mm3 (0.00-0.10); IMMATURE GRAN PERCENT AUTO 0 % (0-1); LYMPHOCYTES ABSOLUTE AUTO 0.72 K/mm3 (0.84-5.20); LYMPHOCYTES PERCENT AUTO 19 % (21-46); MONOCYTES ABSOLUTE AUTO 0.26 K/mm3 (0.16-1.47); MONOCYTES PERCENT AUTO 7 % (4-13); Mean Corpuscular HGB 30.3 pg (26.0-34.0); Mean Corpuscular HGB Conc 32.2 g/dL (31.5-36.5); Mean Corpuscular Volume 94 fL (80-100); Mean Platelet Volume 9.6 fL (9.1-12.4); NEUTROPHILS PERCENT AUTO 66 % (41-73); RDW Coefficient Variation 17.4 % (11.7-14.2); Red Blood Cell Count 2.74 M/mm3 (3.80-5.20)
[2024-02-20 05:10] LABS: Platelet Count 43 K/mm3 (150-400)
[2024-02-20 05:52] LABS: Bun/Creatinine Ratio 18.9 (12.0-20.0); Calcium, Blood 9.4 mg/dL (8.5-10.1); Creatinine, Blood 1.85 mg/dL (0.40-1.00); Potassium, Blood 4.3 mmol/L (3.5-5.5)
[2024-02-20 07:17] VITALS: BP 126/56
[2024-02-20] MEDS ORDERED: CefTRIAXone 1000 MG Vial ONE (07:53)
[2024-02-20] MEDS ORDERED: NS 100 ML IV ONE (07:53)
[2024-02-20] MEDS ORDERED: ADMELOG SO100 UNIT/2 ×2 (10:56)
[2024-02-20 15:42] VITALS: BP 143/113
--- NOTE | 2024-02-20 19:18 | NUR ---
SHIFT SUMMARY PATIENT WORKING WITH PT THIS SHIFT, ABLE TO WALK TO BATHROOM WITH 2 ASSIST AND WALKER. NOT ORIENTED BUT TO SELF, GIVEN OXY IN THE AM WITH GOOD RELIEF. 2 BOWEL MOVEMENTS THIS SHIFT, INCONTINENT EPISODES OF URINE WELL. ABLE TO MAKE NEEDS KNOWN AT TIMES. CALL LIGHT IN REACH. CARES ONGOING
[2024-02-20 19:45] VITALS: BP 140/76
--- NOTE | 2024-02-21 03:21 | NUR ---
PHYSICAL SCIENCES PROFESSOR SUMMARY VSS. AT SHIFT COMMENCE PT WAS VERY AGITATED AND PUSHING AT STAFF WHEN ASSISTED TO BATHROOM. INITIALLY REFUSED TO REDIRECT, BUT WAS ASSISTED BACK TO BED. WARM BLANKET APPLIED AND ENCOURAGED TO REST. A WHILE LATER, TOLERATED MEDS WITH APPLESAUCE. ABLE TO REPOSITION SELF IN BED WITHOUT ASSIST FOR COMFORT. CALL LIGHT IN REACH, RAILS UP X 3, BED IN LOW POSITION AND BED ALARM ON FOR SAFETY. HAS BEEN RESTING QUIETLY FOR MOST OF THE SHIFT, WITH AN OCCASIONAL CALLING OUT, CALMS WITH WORDS OF ENCOURAGEMENT. PO FLUIDS ENCOURAGED WITH ASPIRATION PRECAUTIONS MAINTAINED. WILL CONTINUE TO MONITOR.
[2024-02-21 04:17] VITALS: BP 139/64
[2024-02-21 07:38] VITALS: BP 126/94
[2024-02-21 15:48] VITALS: BP 102/58
--- NOTE | 2024-02-21 17:11 | NUR ---
SHIFT SUMMARY PATIENT IN BED MOST OF THE SHIFT, EXTREMELY TIRED TODAY. DAUGHTER STATED THAT SHE HAS DAYS SOMETIMES WHERE SHE SLEEPS FOR 12 OR MORE HOURS. WAKING TO TAKE PILLS AND SOME OF HER MEALS. GIVEN OXY IN AM FOR C/O PAIN. CALL LIGHT IN REACH, BED ALARM ON. CARES ONGOING.
[2024-02-21 19:38] VITALS: BP 125/72
--- NOTE | 2024-02-22 03:32 | NUR ---
PASSENGER LOCOMOTIVE ENGINEER SUMMARY VSS. TOLERATED HS MEDS WELL WITH APPLESASUCE. MORE TIRED TONIGHT THAN NOTED 24 HR AGO. COOPERATIVE WITH CARE. ABLE TO REPOSITION SELF IN BED WITHOUT ASSIST FOR COMFORT AND SKIN CARE. HAS BEEN RESTING QUIETLY WITH FEW INTERRUPTIONS NOTED. CALL LIGHT IN REACH, RAILS UP X 3 AND BED IN LOW POSITION FOR SAFETY. CHAGED WHEN INCONT. FREQUENT CHECKS - NO NOTED S/S DISTRESS. WILL CONTINUE TO MONITOR
[2024-02-22 05:18] VITALS: BP 123/60
[2024-02-22 07:56] VITALS: BP 122/56
[2024-02-22 08:37] LABS: BASOPHILS ABSOLUTE AUTO 0.02 K/mm3 (0.00-0.23); BASOPHILS PERCENT AUTO 1 % (0-2); EOSINOPHILS ABSOLUTE AUTO 0.31 K/mm3 (0.00-0.68); EOSINOPHILS PERCENT AUTO 10 % (0-6); Hematocrit 26.2 % (33.0-51.0); Hemoglobin 8.2 g/dL (11.5-16.0); IMMATURE GRAN ABSOLUTE AUTO 0.01 K/mm3 (0.00-0.10); IMMATURE GRAN PERCENT AUTO 0 % (0-1); LYMPHOCYTES ABSOLUTE AUTO 0.82 K/mm3 (0.84-5.20); LYMPHOCYTES PERCENT AUTO 26 % (21-46); MONOCYTES ABSOLUTE AUTO 0.25 K/mm3 (0.16-1.47); MONOCYTES PERCENT AUTO 8 % (4-13); Mean Corpuscular HGB 29.8 pg (26.0-34.0); Mean Corpuscular HGB Conc 31.3 g/dL (31.5-36.5); Mean Corpuscular Volume 95 fL (80-100); Mean Platelet Volume 10.6 fL (9.1-12.4); NEUTROPHILS ABSOLUTE AUTO 1.75 K/mm3 (1.96-9.15); NEUTROPHILS PERCENT AUTO 56 % (41-73); RDW Standard Deviation 62.9 fL (35.1-46.3); Red Blood Cell Count 2.75 M/mm3 (3.80-5.20); White Blood Cell Count 3.16 K/mm3 (4.00-11.30)
[2024-02-22 08:47] LABS: Bun/Creatinine Ratio 20.2 (12.0-20.0); Calcium, Blood 9.9 mg/dL (8.5-10.1); Creatinine, Blood 1.83 mg/dL (0.40-1.00); Potassium, Blood 4.5 mmol/L (3.5-5.5)
[2024-02-22 08:53] LABS: Platelet Count 48 K/mm3 (150-400)
[2024-02-22] MEDS ORDERED: AMOCLA500 PO ×2 (11:30)
--- NOTE | 2024-02-22 15:24 | NUR ---
PT DISCHARGED AT 1430 VIA TAXI. PT HAD DAUGHTER AT BEDSIDE AND ALL PAPERWORK AND EDUCATIONAL MATERIAL WAS REVIEWED AND SENT WITH PT. PT HAS BEEN DOING WELL AOX3 COOPERATIVE WORKING WELL WITHOT AND PHYSICAL THERAPY. NO DISTRESS NOTED. PT IS A ONE PERSON ASSSIST TO WHEELCHAIR AND ESCORTED DOWN TO N ENTRACE BY AID. ALL PERSONAL BELONGINGS COLLECTED AND TAKEN WITH PT.
[2024-02-23] MEDS ORDERED: Amoxicillin/Clavulanate K 500 MG Tab PO SCH (08:00)
== END 2024-02-22 14:24 | disposition home health service (06) ==
LOC: ER 18:49 → MEDS 18:50 → ER 19:49 → MEDS 02-19 01:07 → ER 02-19 01:07 → ERHOLD 02-19 01:07 → MEDS 02-19 04:31 → ER 02-19 04:43 → MEDS 02-22 14:24
PROVIDERS: Emergency Medicine; Internal Medicine Endocrinology, Diabetes & Metabolism; ADMIT Family Medicine
DX: N39.0 Urinary tract infection, site not specified (principal); B96.1 Klebsiella pneumoniae [K. pneumoniae] as the cause of diseases classified elsewhere; E11.22 Type 2 diabetes mellitus with diabetic chronic kidney disease; I13.0 Hypertensive heart and chronic kidney disease with heart failure and stage 1 through stage 4 chronic kidney disease, or unspecified chronic kidney disease; N18.32 Chronic kidney disease, stage 3b; I50.9 Heart failure, unspecified; F03.C0 Unspecified dementia, severe, without behavioral disturbance, psychotic disturbance, mood disturbance, and anxiety; K21.9 Gastro-esophageal reflux disease without esophagitis; M10.9 Gout, unspecified; I48.0 Paroxysmal atrial fibrillation; E78.5 Hyperlipidemia, unspecified; D69.3 Immune thrombocytopenic purpura; Z79.84 Long term (current) use of oral hypoglycemic drugs; Z79.899 Other long term (current) drug therapy; Z88.8 Allergy status to other drugs, medicaments and biological substances
CPT/HCPCS: 36415; 51701; 70450; 71045; 72170; 80048; 81001; 82607; 82728; 82746; 83540; 83550; 83735; 84439; 84443; 85025; 85045; 87077; 87086; 87186; 96361; 96365; 97110; 97162; 97165; 97530; 97530-CQ; 97535; 99285-25; A9270; C1751; G0378; J0696; J7120

== ENCOUNTER 2024-03-07 12:32 | Emergency (ER) | payer MEDICARE, OTHER ==
[~2024-03-07] VITALS: Ht 167.6 cm; Wt 72.6 kg
[~2024-03-07 12:32] MED LIST changes: +ADMELOG SO100 UNIT/2; +AMOCLA500 PO; +DONEPEZIL HCL5 M2 PO; +ESCI10 PO; +FUROSEMIDE20 MG PO; +KLOR-CON 1010 ME9 PO
[2024-03-07 17:15] VITALS: BP 130/55
== END 2024-03-07 17:35 | disposition home or self-care (01) ==
LOC: ER 12:32
DX: S00.03XA Contusion of scalp, initial encounter (principal); K21.9 Gastro-esophageal reflux disease without esophagitis; I13.0 Hypertensive heart and chronic kidney disease with heart failure and stage 1 through stage 4 chronic kidney disease, or unspecified chronic kidney disease; E11.22 Type 2 diabetes mellitus with diabetic chronic kidney disease; N18.32 Chronic kidney disease, stage 3b; I50.9 Heart failure, unspecified; I48.0 Paroxysmal atrial fibrillation; E78.5 Hyperlipidemia, unspecified; W18.30XA Fall on same level, unspecified, initial encounter; Z86.59 Personal history of other mental and behavioral disorders; Z79.899 Other long term (current) drug therapy; Z88.1 Allergy status to other antibiotic agents; Z88.8 Allergy status to other drugs, medicaments and biological substances
CPT/HCPCS: 70450; 72125

== ENCOUNTER 2024-05-06 14:35 | Inpatient (IN) | payer MEDICARE, OTHER ==
[2024-05-06] VITALS (17 sets, daily range): BP systolic 84–195; BP diastolic 59–168
[~2024-05-06] VITALS: Ht 170.2 cm; Wt 81.7 kg
[2024-05-06] MEDS ORDERED: Atropine Sulfate 0.1 MG/ML 10ML SYR IV ONE (14:50)
[2024-05-06 15:21] LABS: BASOPHILS ABSOLUTE AUTO 0.03 K/mm3 (0.00-0.23); BASOPHILS PERCENT AUTO 1 % (0-2); EOSINOPHILS ABSOLUTE AUTO 0.14 K/mm3 (0.00-0.68); EOSINOPHILS PERCENT AUTO 2 % (0-6); Hematocrit 27.9 % (33.0-51.0); Hemoglobin 8.6 g/dL (11.5-16.0); IMMATURE GRAN ABSOLUTE AUTO 0.01 K/mm3 (0.00-0.10); IMMATURE GRAN PERCENT AUTO 0 % (0-1); LYMPHOCYTES ABSOLUTE AUTO 0.89 K/mm3 (0.84-5.20); LYMPHOCYTES PERCENT AUTO 15 % (21-46); MONOCYTES ABSOLUTE AUTO 0.42 K/mm3 (0.16-1.47); MONOCYTES PERCENT AUTO 7 % (4-13); Mean Corpuscular HGB 30.1 pg (26.0-34.0); Mean Corpuscular HGB Conc 30.8 g/dL (31.5-36.5); Mean Corpuscular Volume 98 fL (80-100); Mean Platelet Volume 10.7 fL (9.1-12.4); NEUTROPHILS ABSOLUTE AUTO 4.39 K/mm3 (1.96-9.15); NEUTROPHILS PERCENT AUTO 75 % (41-73); NRBC ABSOLUTE 0.02 K/mm3 (0.00-0.02); NRBC Auto 0.3 /100 WBC (0.0-0.2); Platelet Count 60 K/mm3 (150-400); RDW Coefficient Variation 15.4 % (11.7-14.2); RDW Standard Deviation 54.4 fL (35.1-46.3); Red Blood Cell Count 2.86 M/mm3 (3.80-5.20); White Blood Cell Count 5.88 K/mm3 (4.00-11.30)
[2024-05-06 15:38] LABS: Albumin, Blood 2.5 g/dL (3.4-5.0); Albumin/Globulin Ratio 0.7 (0.8-1.8); Bilirubin, Total 1.1 mg/dL (0.1-1.0); Bun/Creatinine Ratio 14.8 (12.0-20.0); Creatinine, Blood 2.3 mg/dL (0.40-1.00); Globulin, Blood 3.7 g/dL (2.2-4.0); Potassium, Blood 4.2 mmol/L (3.5-5.5); Total Protein, Blood 6.2 g/dL (6.4-8.2)
[2024-05-06 15:39] LABS: Calcium, Ionized (POC) 1.36 mmol/L (1.10-1.46); Chloride (POC) 111 mmol/L (98-108); Creatinine (POC) 2.7 mg/dL (0.6-1.0); Glucose (ISTAT POC) 122 mg/dL (70-99); Hemoglobin (POC) 8.2 g/dL (12.0-16.0); Potassium (POC) 4.1 mmol/L (3.5-5.5); Sodium (POC) 142 mmol/L (135-148); Total CO2 (POC) 21 mmol/L (21-32)
[2024-05-06 15:59] LABS: Source, Urine Straight Cath
[2024-05-06 16:05] LABS: Influenza A, PCR NEGATIVE (NEGATIVE); Influenza B, PCR NEGATIVE (NEGATIVE); Resp Syncytial Virus, PCR NEGATIVE (NEGATIVE); SARS-Cov-2 (COVID-19) PCR, MMC NEGATIVE (NEGATIVE)
[2024-05-06 16:06] LABS: Appearance, Urine Cloudy (Clear); Blood, Urine 5+ (Neg); Color, Urine Red (P-Yellow); Glucose Qualitative, Urine Neg (Neg); Ketones, Urine 1+ (Neg); Leukocyte Esterase, Urine 1+ (Neg); Nitrite, Urine Pos (Neg); Protein, Urine 3+ (Neg); Specific Gravity, Urine 1.025 (1.003-1.022); Urobilinogen, Urine 1+ (Normal)
[2024-05-06 16:39] LABS: Bilirubin, Urine 1+ (Neg)
[2024-05-06 16:42] LABS: Bacteria Many /hpf; Mucus Light (0-Heavy); Red Blood Cells, Urine TNTC /hpf (0-2); Squamous Epithelial Cells Mod /hpf (Few); Transitional Epithelial Cells Rare /hpf (0-Rare)
[2024-05-06] MEDS ORDERED: NS 1,000 ML IV SCH (16:45)
[2024-05-06] MEDS ORDERED: CefTRIAXone Sodium 1,000 MG in NS 100 ML IV ONE (16:45)
[2024-05-06] MEDS ORDERED: Heparin Sodium 1000 Units/ML 10ML MDV ONE (17:34)
[2024-05-06] MEDS ORDERED: NS 250 ML IV ONE (17:34)
[2024-05-06] MEDS ORDERED: Atropine Sulfate 0.1 MG/ML 10ML SYR ONE (17:53)
[2024-05-06] MEDS ORDERED: FLU VACC TS2024-25(6MOS UP)/PF 45 MCG/0.5 ML SYRINGE IM SCH (18:20)
[2024-05-06] MEDS ORDERED: Ondansetron HCl 2 MG / ML 2ML Vial IV PRN (18:20)
--- NOTE | 2024-05-06 19:35 | NUR ---
ASSUMPTION OF CARE Patient to floor from forestry farm laborer, bedside report taken from ERIKA Slaas. Temporary pacer in place, 70bpm, output 7, sensing 2. Levo currently running at 4mcg/min. Placed in bilateral non-violent restraints to maintain safety. Per Dr. Majano, we did not attempt to collect a second set of blood cultures. Plans to transfer to [place] for permanent pacer tonight? Daughter Jen at bedside and aware of plan of care. States that she is the decision maker for her mom. Can be contacted with questions at [phone]. Expressed that she wants her mom to be a Full code Bedside report given to oncoming MANUFACTURING INTERN. Bed in lowest position, fall alarm on.
[2024-05-06] MEDS ORDERED: NS 500 ML IV ONE (22:05)
[2024-05-07] MEDS ORDERED: CefTRIAXone Sodium 1,000 MG in NS 100 ML IV SCH (18:00)
== END 2024-05-06 22:15 | disposition short-term general hospital (02) | DRG 309 ==
LOC: ER 14:35 → ICUE 17:23
PROVIDERS: Emergency Medicine; ADMIT Internal Medicine
DX: I44.2 Atrioventricular block, complete (principal); G93.49 Other encephalopathy; G30.9 Alzheimer's disease, unspecified; F02.80 Dementia in other diseases classified elsewhere, unspecified severity, without behavioral disturbance, psychotic disturbance, mood disturbance, and anxiety; I48.0 Paroxysmal atrial fibrillation; Z88.8 Allergy status to other drugs, medicaments and biological substances; Z79.899 Other long term (current) drug therapy; I12.9 Hypertensive chronic kidney disease with stage 1 through stage 4 chronic kidney disease, or unspecified chronic kidney disease; E11.22 Type 2 diabetes mellitus with diabetic chronic kidney disease; N18.32 Chronic kidney disease, stage 3b; K21.9 Gastro-esophageal reflux disease without esophagitis; Z85.51 Personal history of malignant neoplasm of bladder; Z85.038 Personal history of other malignant neoplasm of large intestine; M10.9 Gout, unspecified; M19.90 Unspecified osteoarthritis, unspecified site; E78.5 Hyperlipidemia, unspecified; D63.1 Anemia in chronic kidney disease; D69.6 Thrombocytopenia, unspecified; Z91.81 History of falling; Z90.710 Acquired absence of both cervix and uterus
CPT/HCPCS: 0241U; 33210; 36415; 71045; 76937; 80047; 80053; 81001; 83605; 83735; 83880; 84443; 84484; 85014; 85025; 87086; 92953; 96365; 96368; 96375; 99291-25; C1894; J0461; J0696; J1644; J7030; J7040; J7050; J7060; P9612